=== PATIENT | female | born 1960 | race Caucasian/White ===

== ENCOUNTER → 2018-12-04 | Outpatient (CLI) | payer OTHER, SELFPAY ==
[2018-11-23 11:40] VITALS: BMI 52.7
--- NOTE | 2018-12-04 15:59 | BI_ITS ---
MAMMOGRAPHY - BILATERAL SCREENING REASON FOR EXAM: Female, 58 years old. Routine annual screening examination. PERTINENT HISTORY: Non-contributory. TECHNIQUE: Digital bilateral breast alan (3D mammographic acquisition) in the CC and MLO projections. 2-D mediolateral oblique (MLO) and craniocaudad (CC) views of both breasts were obtained. CAD: Full Field Digital Mammography with Computer Added Detection was performed. COMPARISON: Comparison is made with prior examination dated July 13, 2016 and March 08, 2012. FINDINGS: Breast Composition: The breasts are almost entirely fatty. There are no dominant masses or suspicious calcifications. No other significant abnormalities are identified. There has been no significant change since the prior study. BI/SCREEN MAMM (CAD) W/ALAN BILAT IMPRESSION: Stable bilateral screening mammogram. Yearly follow-up mammogram recommended. (A) ASSESSMENT CATEGORY: BIRADS Category 1: Negative. A letter regarding these results will be sent to the patient by the facility within 30 days. Approximately 10% of breast cancers are not detected by mammography. A normal mammogram should not delay biopsy of a clinically suspicious abnormality. [id number] Electronically Signed: Jerad Hollingsworth, at 10:12 EDT , Service support ,
== END | disposition home or self-care (01) ==
LOC: OPBI 15:58
PROVIDERS: Family Provider Family Medicine; PCP Family Medicine; Visit Provider Family Medicine
DX: Z12.31 Encounter for screening mammogram for malignant neoplasm of breast (principal)
CPT/HCPCS: 77063; 77067

== ENCOUNTER → 2018-12-28 | Outpatient (CLI) | payer OTHER, SELFPAY ==
[2018-12-05 13:45] VITALS: BMI 52.7
--- NOTE | 2018-12-28 12:45 | RAD_ITS ---
STUDY: X-RAY - RIGHT ANKLE REASON FOR EXAM: Female, 58 years old. Pain following a twisting injury. TECHNIQUE: History view(s) of the ankle. COMPARISON: None. FINDINGS: Normal visualized distal tibia and fibula. Normal medial and lateral malleoli. Normal tibiotalar articulation and ankle mortise. Plantar spur. The visualized subtalar, talonavicular, calcaneocuboid and tarsal articulations are normal. Diffuse soft tissue swelling. Calcified phleboliths seen in the subcutaneous tissues. RAD/Ankle min 3 Views IMPRESSION: Soft tissue swelling. Electronically Signed: Jerad Hollingsworth, at 13:37 EDT , Service support ,
--- NOTE | 2018-12-28 12:45 | RAD_ITS ---
STUDY: X-RAY - RIGHT FOOT CLINICAL: Female, 58 years old. Pain following a twisting injury. TECHNIQUE: 3 view(s) of the foot. COMPARISON: None. FINDINGS: There is a plantar calcaneal spur. Normal visualized subtalar, talonavicular, calcaneocuboid, tarsal and tarsometatarsal articulations. Normal metatarsi. Normal metatarsophalangeal joint of the great toe. Normal tibial and fibular sesamoid bones. Normal interphalangeal joint of the great toe. Normal phalanges of the great toe. Normal second through fifth metatarsophalangeal joints. Normal interphalangeal joints and phalanges of the lesser toes. Diffuse soft tissue swelling. RAD/Foot min 3 Views IMPRESSION: Diffuse soft tissue swelling. Electronically Signed: Jerad Hollingsworth, at 13:38 EDT , Service support ,
== END | disposition home or self-care (01) ==
LOC: HPRAD 12:45
PROVIDERS: Family Provider Family Medicine; PCP Family Medicine; Referring Provider Physician Assistant; Visit Provider Physician Assistant
DX: M25.571 Pain in right ankle and joints of right foot (principal); M79.671 Pain in right foot
CPT/HCPCS: 73610; 73630

== ENCOUNTER → 2020-07-23 14:26 | Outpatient (CLI) | payer OTHER, MEDICAID, SELFPAY ==
--- NOTE | 2020-07-23 14:27 | RAD_ITS ---
STUDY: X-RAY - ABDOMEN/PELVIS REASON FOR EXAM: Female, 60 years old. left posterior pain TECHNIQUE: Two AP supine views of the abdomen and pelvis. COMPARISON: None. FINDINGS: Normal visualized lung bases. There is a moderate amount of colonic fecal material. There is no demonstrated free abdominal air. The visualized liver, spleen and kidneys are grossly normal in size and morphology. Normal soft tissue structures. Normal visualized osseous structures. RAD/Abdomen Single View IMPRESSION: Moderate constipation Electronically Signed: Oc Villar DO at 9:20 EST Tel , Service support ,
[2020-07-23 15:26] LABS: Bacteria 0 SEEN /hpf (None Seen); Mucous, Urine 0 SEEN /hpf (<or=2+); Red Blood Cells-Urine 0 SEEN /hpf (0-5); White Blood Cells 0 SEEN /hpf (0-5)
[2020-07-23 17:40] LABS: Color, Urine Yellow (Yellow); Glucose, Dipstick Normal (Normal); Ketone-Dipstick Negative (Negative); Leukocyte Esterase-Dipstick Negative /ul (Negative); Nitrite-Dipstick Negative (Negative); Occult Blood-Urine Negative /ul (Negative); Protein-Dipstick Negative (Negative); Urine Bilirubin Dipstick Negative (Negative); Urine Clarity Clear (Clear); Urine Urobilinogen Normal (Normal)
[2020-07-23 18:10] LABS: Squamous Epithelial Cells - UA 0-5 SEEN /hpf (5-10)
== END ==
PROVIDERS: PCP Family Medicine; Referring Provider Nurse Practitioner Family; Visit Provider Nurse Practitioner Family
DX: R10.9 Unspecified abdominal pain (principal)
CPT/HCPCS: 74018; 81001; 87086; 87088

== ENCOUNTER → 2022-01-15 | Outpatient (CLI) | payer MEDICAID, SELFPAY ==
[2022-01-15 15:15] LABS: Mucous, Urine 0 SEEN /hpf (<or=2+); Red Blood Cells-Urine 0 SEEN /hpf (0-5); White Blood Cells 0 SEEN /hpf (0-5)
[2022-01-15 16:37] LABS: Color, Urine Yellow (Yellow); Glucose, Dipstick Normal (Normal); Ketone-Dipstick Negative (Negative); Leukocyte Esterase-Dipstick Negative /ul (Negative); Nitrite-Dipstick Negative (Negative); Occult Blood-Urine Negative /ul (Negative); Protein-Dipstick Negative (Negative); Urine Bilirubin Dipstick Negative (Negative); Urine Clarity Clear (Clear); Urine Urobilinogen Normal (Normal)
[2022-01-15 16:41] LABS: Absolute Lymphocyte Count 2.69 X10^3/uL (0.83-4.51); Absolute Neutrophil Count 3.9 X10^3/uL (2.0-7.7); Basophil# 0.05 X10^3/uL; Basophil% 0.7 % (0-1); Eosinophil# 0.14 X10^3/uL; Eosinophils% 1.9 % (0-5); Hemoglobin 13.8 g/dL (12.0-15.0); Lymphocyte # 2.69 X10^3/ul (0.83-4.51); Lymphocyte % 35.9 % (19-41); Mean Corp Hgb Conc 32.1 g/dL (32-36); Mean Corpuscular Hgb 28.5 pg (27.0-32.0); Mean Corpuscular Volume 88.8 fL (81-99); Monocyte# 0.66 X10^3/uL; Monocyte% 8.8 % (0-10); NRBC Flagged by Analyzer 0 % (0-5); Neutrophil # 3.92 X10^3/uL (2.7-7.7); Neutrophil % 52.3 % (47-70); Platelet Count 194 K/mm3 (150-450); RBC Distribution Width CV 12.4 % (11.6-14.6); RBC Distribution Width SD 40.7 fl (35.1-43.9); Red Blood Count 4.84 M/mm3 (4.2-5.4); White Blood Count 7.5 K/mm3 (4.4-11.0)
[2022-01-15 16:49] LABS: Bacteria 1+ /hpf (None Seen); Squamous Epithelial Cells - UA 0-5 SEEN /hpf (5-10)
[2022-01-15 17:26] LABS: ALB/GLOB Ratio 1.3 RATIO (0.9-2.4); AST(SGOT) 21 U/L (15-37); Alanine Aminotransfer ALT/SGPT 39 U/L (13-56); Albumin, Serum 4.1 g/dL (3.2-5.0); Alkaline Phosphatase 65 U/L (45-117); Anion Gap 7 (5-15); BUN 15 mg/dL (7-18); BUN/Creat Ratio 18.2 RATIO (10-20); Calcium,Total 9.4 mg/dL (8.5-10.1); Chloride 107 mmol/L (98-107); Cholesterol 165 mg/dL (200); Creatinine, Serum 0.82 mg/dL (0.55-1.02); EST Glomerular Filtration Rate 75 mL/min (>60); Est Glom Filt Rate - Afr Amer 90 mL/min (>60); Globulin 3.2 g/dL (2.2-4.2); Glucose 92 mg/dL (74-106); High Density Lipoprotein 37 mg/dL; Potassium 4.4 mmol/L (3.5-5.1); Protein, Total 7.3 g/dL (6.4-8.2); Sodium Level 140 mmol/L (136-145); Triglycerides 161 mg/dL; Very Low Density Lipoprotein 32 mg/dL (5-40)
== END | disposition home or self-care (01) ==
LOC: BIMLAB 15:14
PROVIDERS: PCP Family Medicine; Referring Provider Physician Assistant; Visit Provider Physician Assistant
DX: Z00.00 Encounter for general adult medical examination without abnormal findings (principal); R60.9 Edema, unspecified; R35.0 Frequency of micturition; Z87.442 Personal history of urinary calculi; Z13.220 Encounter for screening for lipoid disorders
CPT/HCPCS: 36415; 80053; 80061; 81001; 85025; 87086; 87088

== ENCOUNTER → 2022-01-26 | Outpatient (CLI) | payer MEDICAID, SELFPAY ==
--- NOTE | 2022-01-26 14:01 | CT_ITS ---
STUDY: CT ABDOMEN AND PELVIS WITHOUT CONTRAST REASON FOR EXAM: Female, 61 years old. R/O Kidney stone RADIATION DOSAGE (If Supplied By Facility): CTDIvol = ( 24.18 ) mGy, DLP = ( 1195.98 ) mGycm TECHNIQUE: Transaxial images were obtained from the dome of the diaphragm to the symphysis pubis without oral contrast, and without intravenous contrast. Sagittal and coronal images were reconstructed. Individualized dose optimization techniques were used for this CT. COMPARISON: None. FINDINGS: The visualized lung bases are unremarkable. The visualized portions of the heart are within normal limits. There is decreased attenuation of the liver consistent with steatosis. Normal gallbladder and extrahepatic biliary system. Normal spleen. Normal pancreas. Normal bilateral adrenal glands. Normal right kidney. Normal left kidney. There is a small hiatal hernia. Normal small intestine. There are multiple colonic diverticula consistent with diverticulosis. The appendix is visualized and appears normal. Normal abdominal aorta. Normal inferior vena cava. There is borderline retroperitoneal lymphadenopathy with enlarged nodes no greater than 10mm in the short axis diameter. Normal urinary bladder. There is absence of the uterus consistent with a prior hysterectomy. Phleboliths are seen in the pelvis. There is a small umbilical hernia containing fat. Disc space narrowing and disc degeneration at the L3-L4 level. CT/Abdomen/Pelvis without Cont IMPRESSION: Diffuse fatty infiltration of the liver. No evidence of kidney stone or ureteral stone. Electronically Signed: Jerad Hollingsworth MD at 15:15 EDT ,
== END | disposition home or self-care (01) ==
LOC: CT 13:56
PROVIDERS: PCP Family Medicine; Referring Provider Physician Assistant; Visit Provider Physician Assistant
DX: R10.9 Unspecified abdominal pain (principal); Z87.442 Personal history of urinary calculi
CPT/HCPCS: 74176

== ENCOUNTER → 2022-04-29 | Outpatient (CLI) | payer MEDICAID, SELFPAY ==
--- NOTE | 2022-04-29 08:55 | US_ITS ---
STUDY: ULTRASOUND BREAST - LEFT REASON FOR EXAM: Female, 62 years old. Palpable lump left breast. TECHNIQUE: Axial and longitudinal images of the LEFT breast were performed with a high resolution ultrasound transducer. # OF IMAGES: 14 COMPARISON: Comparison is made with prior study of 12/04/2018 and 07/13/2016. FINDINGS: LEFT Breast: The mid medial aspect of the left breast was examined by ultrasound. No sonographic abnormality is seen. US/Breast Limited Unilateral IMPRESSION: No sonographic abnormality is seen. ASSESSMENT CATEGORY: BIRADS Category 1: Negative. A letter regarding these results will be sent to the patient by the facility within 30 days. Electronically Signed: Jerad Hollingsworth MD at 11:28 EDT ,
--- NOTE | 2022-04-29 08:55 | BI_ITS ---
MAMMOGRAPHY - BILATERAL DIAGNOSTIC REASON FOR EXAM: Female, 62 years old. Two-week history of a palpable lump in the lower inner quadrant of the left breast. The lump is not felt at this time. PERTINENT HISTORY: Non-contributory. TECHNIQUE: Digital bilateral breast luis (3D mammographic acquisition) in the CC and MLO projections. 2-D mediolateral oblique (MLO) and craniocaudad (CC) views of both breasts were obtained. CAD: Full Field Digital Mammography with Computer Added Detection was performed. COMPARISON: Comparison is made with prior study dated 12/04/2018 and 07/13/2016. FINDINGS: Breast Composition: There are scattered areas of fibroglandular density. There are no dominant masses or suspicious calcifications. No other significant abnormalities are identified. There has been no significant change since the prior study. BI/DIAG MAMM W/CAD, BILAT IMPRESSION: Stable bilateral diagnostic mammogram. With the patient''s history of a palpable lump in the breast, targeted ultrasound correlation is recommended. ASSESSMENT CATEGORY: BIRADS Category 0: Incomplete. Need additional imaging evaluation. A letter regarding these results will be sent to the patient by the facility within 30 days. Approximately 10% of breast cancers are not detected by mammography. A normal mammogram should not delay biopsy of a clinically suspicious abnormality. Electronically Signed: Jerad Hollingsworth MD at 14:44 EDT ,
== END | disposition home or self-care (01) ==
LOC: OPBI 08:54
PROVIDERS: PCP Family Medicine; Visit Provider Physician Assistant
DX: N63.20 Unspecified lump in the left breast, unspecified quadrant (principal)
CPT/HCPCS: 77062; 76642; 77066; G0279

== ENCOUNTER → 2023-06-16 | Outpatient (CLI) | payer MEDICAID, SELFPAY ==
--- NOTE | 2023-06-16 12:25 | RAD_ITS ---
STUDY: X-RAY - LEFT KNEE REASON FOR EXAM: Female, 63 years old. knee pain TECHNIQUE: 4 view(s) of the knee. COMPARISON: None. FINDINGS: Normal visualized distal femur. Normal visualized proximal tibia and fibula. Normal proximal tibiofibular articulation. Narrowed medial femorotibial compartment with mild valgus deformity on standing... Normal lateral femorotibial compartment. Normal patellofemoral articulation. The soft tissue structures are unremarkable. RAD/Knee 4 or More Views IMPRESSION: Degenerative changes. No acute fracture or dislocation Electronically Signed: Tyler Gutierrez MD at 23:00 EST Reading Location ID and State: [address] [place] [address] Tel , Service support ,
[2023-06-16 15:29] LABS: ALB/GLOB Ratio 1.2 RATIO (0.9-2.4); AST(SGOT) 33 U/L (15-37); Alanine Aminotransfer ALT/SGPT 49 U/L (13-56); Albumin, Serum 4.1 g/dL (3.2-5.0); Alkaline Phosphatase 67 U/L (45-117); Anion Gap 8 (5-15); BUN 20 mg/dL (7-18); BUN/Creat Ratio 21.6 RATIO (10-20); Calcium,Total 9.3 mg/dL (8.5-10.1); Chloride 104 mmol/L (98-107); Creatinine, Serum 0.93 mg/dL (0.55-1.02); EST Glomerular Filtration Rate 65 mL/min (>60); Est Glom Filt Rate - Afr Amer 78 mL/min (>60); Globulin 3.4 g/dL (2.2-4.2); Glucose 105 mg/dL (74-106); Protein, Total 7.5 g/dL (6.4-8.2); Sodium Level 139 mmol/L (136-145)
== END | disposition home or self-care (01) ==
PROVIDERS: PCP Family Medicine; Referring Provider Family Medicine; Visit Provider Family Medicine
DX: M25.562 Pain in left knee (principal); I10 Essential (primary) hypertension
CPT/HCPCS: 36415; 73564; 80053

== ENCOUNTER → 2023-06-21 | Outpatient (CLI) | payer MEDICAID, SELFPAY ==
--- NOTE | 2023-06-21 10:13 | BI_ITS ---
MAMMOGRAPHY - BILATERAL SCREENING REASON FOR EXAM: Female, 63 years old. Routine annual screening examination. PERTINENT HISTORY: Non-contributory. TECHNIQUE: Digital bilateral breast alan (3D mammographic acquisition) in the CC and MLO projections. 2-D mediolateral oblique (MLO) and craniocaudad (CC) views of both breasts were obtained. CAD: Full Field Digital Mammography with Computer Added Detection was performed. COMPARISON: Comparison is made with prior study from December 04, 2018 and April 29, 2022. FINDINGS: Breast Composition: There are scattered areas of fibroglandular density. There are no dominant masses or suspicious calcifications. No other significant abnormalities are identified. There has been no significant change since the prior study. BI/SCRN MAMM (CAD)W/ALAN BILAT IMPRESSION: Stable bilateral screening mammogram. Yearly follow-up mammogram recommended. (A) ASSESSMENT CATEGORY: BIRADS Category 1: Negative. A letter regarding these results will be sent to the patient by the facility within 30 days. Approximately 10% of breast cancers are not detected by mammography. A normal mammogram should not delay biopsy of a clinically suspicious abnormality. [id number] Electronically Signed: Jerad Hollingsworth MD at 12:56 EST ,
== END | disposition home or self-care (01) ==
LOC: OPBI 10:13
PROVIDERS: PCP Family Medicine; Referring Provider Family Medicine; Visit Provider Family Medicine
DX: Z12.31 Encounter for screening mammogram for malignant neoplasm of breast (principal)
CPT/HCPCS: 77063; 77067

== ENCOUNTER → 2023-09-27 | Outpatient (CLI) | payer MEDICAID, SELFPAY ==
--- NOTE | 2023-09-27 10:43 | RAD_ITS ---
STUDY: X-RAY - RIGHT SHOULDER REASON FOR EXAM: Female, 63 years old. Right shoulder pain. TECHNIQUE: 4 views of the right shoulder. COMPARISON: None. FINDINGS: There is minimal glenohumeral arthrosis. Normal acromioclavicular joint. Normal acromion. Normal humeral head and visualized proximal humerus. The soft tissue structures are unremarkable. There is no demonstrated fracture. Normal visualized pulmonary apex. RAD/Shoulder min 2 Views IMPRESSION: Minimal glenohumeral arthrosis. Electronically Signed: Calin Vicente MD at 9:35 EST ,
== END | disposition home or self-care (01) ==
PROVIDERS: PCP Family Medicine; Referring Provider Nurse Practitioner; Visit Provider Nurse Practitioner
DX: M25.519 Pain in unspecified shoulder (principal)
CPT/HCPCS: 73030

== ENCOUNTER 2023-10-07 08:07 | Outpatient (RCR) | payer MEDICAID, SELFPAY ==
--- NOTE | 2023-10-07 08:53 | HP.PTEVAL ---
Patient's Visit Information Visit Information Visit Information: ALCIDES STEELE is a 63 year old F referred to Physical Therapy by RANDY Elizalde with a diagnosis of BPPV. Date of Evaluation: 10/07/23 Physical Therapist: Jesu Paniagua, MARIAELENAT, OCS, CSCS Visit Plan Frequency: 1x/Week Duration: 2-4 Weeks Plan: weekly x 2-4 to monitor need for further positional intervention(+ L HD today) Educate on treatment Subjective Subjective: I have vertigo. Woke up one morning with the room spinning. That was about a month ago. Sat up and spun and lasted 15 seconds. Head always feels full of cotton Improving overall but less intense. Gets spinning now when she lies down for a few seconds. Also if she tips her head back. Has seen doctor a few times, does have fluid on it according to doctor. has been given flonase and meclizine. Not taken lately but did at first. Activities are normal just careful. Sleep is OK. Retired. Hobbies: crafting and can still do. Objective Objective: Walks I into PT safely and transfers bed and chair I. Good balance and function. cervical AROM WFL adn without pain. UE AROM WFL, limited L due to pain shoulder. - R hallpike jerry + L hallpike jerry for 8 second up torsional nystagmus, treated with modified madeline adn then negative HD test. Balance/Special Test Scores Functional Gait Assessment Score: 27 % Disability: 10.0000 Dizziness Score: 14 Goals Goal 1:: abolish dizzyness with looking up, lying down and sitting up Goal Time Frame: 2-4 Weeks Goal 2:: Pt feel 100% back to normal Goal Time Frame: 2-4 Weeks Goal 3:: DHI score 3 or less Goal Time Frame: 2-4 Weeks Rehabilitation Potential Physical Therapy Diagnosis: Dizzyness preventing comfortable funciton. Rehabilitation Potential: Excellent Anticipated Interventions Patient/Client Instruction: Educate patient on: Condition and Risk Factors For the Purpose of:: To increase tolerance to activity/condition/position Comment: vestibular maneuvers, exercises as needed. For the Purpose of:: To increase tolerance to activity/condition/position Text: Thank you for the opportunity to evaluate your patient. For Medicare and Medicare HMO plans, please review the plan of care and approve it. It will need to be FAXED BACK to us at [phone] for Medicare purposes. For Medicare only, by signing this I certify the plan of care. Please let me know if there are questions or concerns regarding this plan of care. Physician Signature: Date:
--- NOTE | 2023-12-29 12:05 | HP.PT.NRP ---
Patient Information Patient Information: ALCIDES STEELE was seen in my office for initial evaluation on 10/07/23. The following Plan of Care was established for this patient: POC Established Initial Frequency: 1x/Week Initial Duration: 2-4 Weeks Anticipated Interventions Patient/Client Instruction: Educate patient on: Condition and Risk Factors For the Purpose of:: To increase tolerance to activity/condition/position For the Purpose of:: To increase tolerance to activity/condition/position Last Seen Last Seen: This patient was last seen in our office 10/07/23. Pertinent comments regarding their Physical therapy will appear below: Pt seen one visit of POC and then did not attend any further visits. At this point, it has been over two months and I will discontinue due to nonattendance. At this point I will be discontinuing this patient from physical therapy. I would be happy to see this patient again in the future if found appropriate by the physician. Thank you! Jesu Paniagua, DPT, OCS, CSCS Balance/Gait/Functional tests Balance/Special Test Scores Functional Gait Assessment Score: 27 % Disability: 10.0000 Dizziness Score: 14
== END 2023-10-07 19:00 | disposition home or self-care (01) ==
LOC: PT 08:07
PROVIDERS: PCP Family Medicine; Referring Provider Nurse Practitioner; Visit Provider Nurse Practitioner
DX: H81.10 Benign paroxysmal vertigo, unspecified ear (principal)
CPT/HCPCS: 97161

== ENCOUNTER → 2024-03-13 | Outpatient (CLI) | payer MEDICAID, SELFPAY ==
[2024-03-13 17:43] LABS: ALB/GLOB Ratio 1.1 RATIO (0.9-2.4); AST(SGOT) 33 U/L (15-37); Alanine Aminotransfer ALT/SGPT 45 U/L (13-56); Albumin, Serum 4.1 g/dL (3.2-5.0); Alkaline Phosphatase 70 U/L (45-117); Anion Gap 10 (5-15); BUN 14 mg/dL (7-18); BUN/Creat Ratio 14.8 RATIO (10-20); Calcium,Total 10.1 mg/dL (8.5-10.1); Chloride 99 mmol/L (98-107); Creatinine, Serum 0.95 mg/dL (0.55-1.02); EST Glomerular Filtration Rate 63 mL/min (>60); Est Glom Filt Rate - Afr Amer 76 mL/min (>60); Globulin 3.7 g/dL (2.2-4.2); Glucose 87 mg/dL (74-106); Potassium 3.4 mmol/L (3.5-5.1); Protein, Total 7.8 g/dL (6.4-8.2); Sodium Level 136 mmol/L (136-145)
== END | disposition home or self-care (01) ==
LOC: MTLAB 15:09
PROVIDERS: PCP Family Medicine; Referring Provider Family Medicine; Visit Provider Family Medicine
DX: I10 Essential (primary) hypertension (principal)
CPT/HCPCS: 36415; 80053

== ENCOUNTER 2024-03-17 10:41 | Emergency (ER) | payer MEDICAID, SELFPAY ==
[2024-03-17 10:41] VITALS: BP 150/82; PULSE 81; RESP 19; TEMP 35.7; O2SAT 96; BMI 52.9
--- NOTE | 2024-03-17 11:03 | EDS_ITS ---
HPI History of Present Illness Chief Complaint: Abscess Informant: patient Onset/Context/Timing Onset: Days Context: Gradual Onset Timing: Continuous Current Severity: Mild Maximum Severity: Mild Narrative Narrative: 63-year-old female left buttock abscess last several days. No prior history. Denies being diabetic. No other complaints. Was seen in urgent care and sent to the ER. Prior similar symptoms: No Recent Illness/Hospitalization: No PFSH PFSH Medical History Hemorrhoids Stomach ulcer Kidney stones Hives Chronic headaches Arthritis Home Medications ?Medication ?Instructions ?Recorded ?Last Taken ?Type blood pressure kit-extra large #1 ea 04/19/22 Unknown Rx hydrochlorothiazide 12.5 mg tablet 12.5 mg PO DAILY #90 tabs 06/16/23 Unknown Rx meclizine 25 mg tablet 25 mg PO BID PRN dizziness #60 tabs 09/27/23 Unknown Rx lisinopril 20 mg tablet 20 mg PO DAILY #90 tabs 03/13/24 Unknown Rx cephalexin 500 mg capsule 500 mg PO Q6 #40 CAPSULES 03/17/24 Unknown Rx sulfamethoxazole 800 1 tab PO BID 10 days #20 tabs 03/17/24 Unknown Rx mg-trimethoprim 160 mg tablet (Bactrim DS) Allergy/AdvReac Type Severity Reaction Status Date / Time aspirin Allergy Severe Stomach Verified 03/17/24 10:42 pain Family History Mother CVA (cerebral vascular accident) Heart disease Father Heart disease Surgical History History of hysterectomy History of left knee surgery Social History Smoking Status: Former smoker alcohol intake: never substance use type: does not use frequency: 3-4 times per week ROS ROS ED ROS Narrative Left flank discomfort. Constitutional Constitutional ED: Denies chills or fever(s) Eyes Eyes: Denies blurry vision ENT ENT ED: Denies ear pain Cardiovascular Cardiovascular: Denies chest pain Respiratory/Chest Respiratory/Chest: Denies dyspnea Gastrointestinal Gastrointestinal: Denies abdominal pain Genitourinary Genitourinary ED: Denies dysuria or hematuria Musculoskeletal Musculoskeletal: Denies arthralgias Integumentary Denies abscess Neurologic Neurologic: Denies headache(s) Psychiatric Psychiatric: Denies anxiety Endocrine Endocrinology: Denies cold intolerance Hematologic/Lymphatic Hematologic/Lymphatic: Reports none Allergic/Immunologic Allergic/Immunologic ED: Denies mouth swelling or tongue swelling EXAM Physical Exam Narrative Exam Narrative: Well-appearing 63-year-old female. Vital signs stable afebrile. H EENT exam unremarkable. Lungs clear. Heart regular rhythm rate about 80 no murmur. Chest wall nontender. Abdomen soft nontender. Moving all 4 extremities. Nontender no edema. Left buttock medial cheek lower aspect is indurated tissue palpable abscess. No significant cellulitis. Tender to palpation. Does not involve the rectum. Patient is awake and alert. Answering questions and following commands. Const Vital Signs: 03/17/24 10:41 03/17/24 13:21 03/17/24 15:00 Temperature 96.2 F L Temperature Source Temporal Pulse Rate 81 74 87 Respiratory Rate 19 H 16 16 Blood Pressure 150/82 H 127/46 H 132/78 H Blood Pressure Mean 104 73 96 Pulse Ox 96 98 98 Oxygen Delivery Method Room Air Room Air Positive well nourished and well developed; Negative for cachectic, contractures or unkempt General Appearance ED: well developed and NAD; Negative for unkempt, cachectic, contractures, cyanotic, diaphoretic or pallor Nutritional Appearance: Negative for cachectic HEENT Reports moist mucous membranes Negative for trauma or tenderness Eyes PERRL and EOMs intact bilaterally General Eye ED: Negative for pale conjunctiva, scleral icterus or other Neck no lymphadenopathy, supple and no JVD General: Negative for tenderness or other Chest Wall inspection of chest normal and palpation of chest normal Chest: Negative for other Resp normal respiratory effort and clear to auscultation bilaterally Effort and Inspection: Negative for retractions Auscultation: Negative for rales, rhonchi, wheezes or diminished lung sounds Cardio regular rate, regular rhythm, S1 normal heart sound, S2 normal heart sound and no murmurs Palpation: Negative for palpable S3 or palpable S4 Rate: Negative for bradycardia or tachycardic Rhythm: Negative for abnormal rhythm GI normal to inspection, nondistended, normoactive bowel sounds, non-tender, non- distended and no masses Inspection: Negative for abdominal distention Auscultation: normoactive bowel sounds Palpation: soft; Negative for tender or guarding Back/Spine no CVA tenderness General Back: Negative for CVA tenderness Cervical Spine: Negative for cervical spine tenderness Thoracic Spine / Upper Back: Negative for thoracic spinal tenderness or paraspinal muscle tenderness Lumbar Spine / Lower Back: Negative for lumbar spinal tenderness Extremity normal to inspection General Extremety ED: Negative for edema, tenderness or other findings General Extremity: Negative for edema or other findings Neuro oriented x3 and CN's II-XII intact bilaterally Sensorium / Orientation: alert; Negative for orientation impaired Motor Exam: strength 5/5 throughout Psych mental status grossly normal Appearance: Negative for unkempt Attitude: No agitated Mood & Affect: Negative for depressed, anxious or tearful Skin no rashes or lesions noted and no wounds Skin Narrative: Medial left buttock indurated tissue tender. Early abscess. General Skin Exam: Negative for jaundice or pallor Lesions: No lesion noted Rashes: No rashes noted Trauma: Negative for abrasion Wounds: Negative for wounds noted MDM MDM MDM Narrative Medical decision making narrative: 63-year-old female left buttock subcu abscess. Area will be locally anesthetized with lidocaine and will make an incision to try to drain possible abscess. Left inferior medial buttock away from the anus there is indurated tissue. It is tender. I cleaned it with iodine. Local anesthesia with lidocaine. Patient tolerated well. I probed with a 1-1/2 inch needle and was not unable to get any pus. I made a 1 inch incision probed the area with a hemostat and again no pus. Patient tolerated well. We are obtaining a CT to rule out a deeper abscess. CT of the soft tissue of the buttocks was obtained. There is no obvious abscess that needs to be drained at this time. There is indurated tissue. I did go over this with the general surgeon on-call who also reviewed the CT. I discussed this all with the patient. She will be started on Keflex and Bactrim. Keflex 4 times a day. Bactrim twice a day. For 10 days. Follow-up with general surgery call their office on Tuesday to be seen earlier this week for further evaluation. Warm soaks. Motrin and Tylenol for pain. Return if she is feeling worse. History & Record Review Discussion w/independent historian: Patient Additional record(s) reviewed:: Prior inpatient record, Prior outpatient record, Prior ED visit and Prior labs Radiography Diagnostic Testing: Clinical Impression(s) from Imaging Studies Pelvis CT 03/17/24 14:17 IMPRESSION: Incomplete evaluation of the buttocks. No abnormality noted within the visualized portions of the pelvis. Electronically Signed: Lance Hines MD at 15:16 EDT , Procedures Other Procedures Procedure(s): Left buttocks indurated tissue. Cleaned with iodine. Local anesthetized with lidocaine. Incision and drainage 1 inch incision. Blunt probe the area with a curved hemostat no pus. No pus pocket found. Discharge Plan Triage Chief Complaint: Abscess ED Provider: Jamari Pike Dx/Rx/DC Orders Clinical Impression: Cellulitis of buttock, History of hypertension Instructions: ED Cellulitis Prescriptions: New cephalexin 500 mg capsule 500 mg PO Q6 Qty: 40 0RF sulfamethoxazole-trimethoprim [Bactrim DS] 800-160 mg tablet 1 tab PO BID 10 Days Qty: 20 0RF No Action (DME) blood pressure kit-extra large Kit See Rx Instructions .Route Qty: 1 0RF Rx Instructions: Check daily and as needed hydrochlorothiazide 12.5 mg tablet 12.5 mg PO DAILY Qty: 90 3RF meclizine 25 mg tablet 25 mg PO BID PRN (Reason: dizziness) Qty: 60 0RF lisinopril 20 mg tablet 20 mg PO DAILY Qty: 90 2RF Primary Care Provider: Arsh Llanos Referrals: Arsh Llanos, DO [Primary Care Provider] - Alexandr Cardoza MD [Med Staff - Active Staff] - As soon as possible Activity Restrictions/Additional Instructions: Warm compresses or soaks to your buttocks. Twice a day. Motrin Tylenol for pain. You have an infection of the soft tissue. Currently there is no abscess. It could develop an abscess. Take the antibiotic Keflex 4 times a day. Take the antibiotic Bactrim twice a day. Call and follow-up with Dr. Toni Cardoza on Tuesday. Their office will get you in to be seen this week. If this improves you may not need anything else done. If it gets worse you may need it drained. If you are feeling a lot worse return to the emergency department. Print Language: Vietnamese Disposition Disposition: Home, Self Care
[2024-03-17] MEDS: Lidocaine 1% (20 ml mdv) 20 ML Vial 10 ML INFILT (11:07)
[2024-03-17 13:21] VITALS: BP 127/46; PULSE 74; RESP 16; O2SAT 98
--- NOTE | 2024-03-17 14:17 | CT_ITS ---
EXAM: CT PELVIS WITHOUT INTRAVENOUS CONTRAST CLINICAL INDICATION: left buttock abscess TECHNIQUE: Helically acquired images were obtained of the pelvis without intravenous contrast. This CT exam was performed using one or more of the following dose reduction techniques: automated exposure control, adjustment of the mA and/or kV according to patient size, and/or use of iterative reconstruction technique. COMPARISON: No relevant prior studies available. FINDINGS: BOWEL: Unremarkable as visualized. No bowel distention. No focal inflammatory change. APPENDIX: No evidence of acute appendicitis. INTRAPERITONEAL SPACE: Normal. No ascites or other fluid collection. No free air. BLADDER: Normal. REPRODUCTIVE: Hysterectomy noted. BONES/JOINTS: No suspicious lytic or blastic abnormality. SOFT TISSUES: The visualized subcutaneous tissues of the buttocks appear normal. The buttocks however are not imaged in their entirety. No pelvic wall hernia. LYMPH NODES: Normal. No enlarged lymph nodes. CT/Pelvis without IV Contrast IMPRESSION: Incomplete evaluation of the buttocks. No abnormality noted within the visualized portions of the pelvis. Electronically Signed: Lance Hines MD at 15:16 EDT ,
[2024-03-17 15:00] VITALS: BP 132/78; PULSE 87; RESP 16; O2SAT 98
[2024-03-17] MEDS: Smz/Tmp Ds Tablet 1 TABLET PO (16:14)
[2024-03-17] MEDS: Cephalexin 250 MG Capsule 500 MG PO (16:14)
[2024-03-17 16:22] VITALS: BP 166/72; PULSE 82; RESP 19; TEMP 36.2; O2SAT 100
== END 2024-03-17 16:23 | disposition home or self-care (01) ==
PROVIDERS: Emergency Provider Emergency Medicine; PCP Family Medicine; Visit Provider Emergency Medicine
DX: L03.317 Cellulitis of buttock (principal); Z87.891 Personal history of nicotine dependence; I10 Essential (primary) hypertension; Z90.710 Acquired absence of both cervix and uterus
CPT/HCPCS: 10060; 72192; 99283; A4216

== ENCOUNTER → 2024-03-21 | Outpatient (CLI) | payer MEDICAID, SELFPAY | END | disposition home or self-care (01) | LOC: LABSPEC 14:58 | PROVIDERS: PCP Family Medicine; Referring Provider Physician Assistant; Visit Provider Physician Assistant | DX: L02.31 Cutaneous abscess of buttock (principal) | CPT/HCPCS: 87070; 87075; 87077; 87186; 87205 ==

== ENCOUNTER → 2025-01-01 | Outpatient (CLI) | payer MEDICARE, BC, SELFPAY ==
--- NOTE | 2025-01-01 15:15 | BI_ITS ---
EXAM: SCRN MAMM (CAD)W/ALAN BILAT DATE: 01/01/2025 CLINICAL HISTORY: F, Age 64 y/o , SCREEN BREAST CANCER RISK ASSESSMENT: Na TECHNIQUE: Bilateral screening digital breast tomosynthesis with 2D and 3D images. Computer aided detection. COMPARISON: Prior exam(s) were compared FINDINGS: TISSUE DENSITY: The breast tissue is composed of scattered area of fibroglandular density.. Bilateral Breast Mammographic Findings: No suspicious masses, calcifications or other abnormalities are identified. BI/SCRN MAMM (CAD)W/ALAN BILAT IMPRESSION: OVERALL FINAL ASSESSMENT: BIRADS 1 NEGATIVE RECOMMENDATION: Routine annual follow-up in 1 Year A letter with findings and recommendations will be mailed to the patient. Reading Location: [id number]
== END | disposition home or self-care (01) ==
PROVIDERS: PCP Family Medicine; Referring Provider Family Medicine; Visit Provider Family Medicine
DX: Z12.31 Encounter for screening mammogram for malignant neoplasm of breast (principal)
CPT/HCPCS: 77063; 77067

== ENCOUNTER 2025-02-15 06:50 | Day surgery (SDC) | payer MEDICARE, BC, SELFPAY ==
[2025-02-15] VITALS (7 sets, daily range): BP systolic 119–158; BP diastolic 63–79; PULSE 60–68; RESP 16–18; TEMP 36–36.6; O2SAT 95–98; BMI 54.1
--- OUTSIDE RECORDS SUMMARY | 2025-02-15 06:56 | XMS RPT_ITS | CCD ---
Author Organization [facility] Care Team Providers Care Engineering Technology Instructor Name Role Phone Dr. Arsh Llanos Primary Care Provider [phone] Dr. Arsh Llanos Referring Provider [phone] LEODAN Branch Attending Provider Unavailab Dr. Arsh Coles Primary Care Provider [phone] Dr. Arsh Llanos Attending Provider [phone] Dr. Arsh Llanos Referring Provider [phone] RANDY Houston Attending Provider [phone] Dr. Arsh Llanos DO Primary Care Provider Dr. Arsh Llanos DO Attending Provider [phone] Dr. Arsh Llanos DO Referring Provider [phone] Brown, Arsh R Referring Unavailable Shira Lim Attending Unavailable Brown, Arsh R Primary Care Unavailable Brown, Arsh R Primary Care Unavailable Hudson Vigil Attending Unavailable Brown, Arsh R Referring Unavailable Brown, Arsh R Referring Unavailable Brown, Arsh R Primary Care Unavailable Alexandr Cardoza Attending Unavailable Shira Lim Attending Unavailable Shira Lim Referring Unavailable Brown, Arsh R Primary Care Unavailable Brown, Arsh R Primary Care Unavailable Brown, Arsh R Attending Unavailable Brown, Arsh R Referring Unavailable Brown, Arsh R Attending Unavailable Brown, Arsh R Referring Unavailable Brown, Arsh R Primary Care Unavailable Brown, Arsh R Primary Care Unavailable Jamari Pike Attending Unavailable Brown, Arsh R Primary Care Unavailable Radha Houston Attending Unavailable Brown, Arsh R Referring Unavailable Shira Lim Attending Unavailable Brown, Arsh R Referring Unavailable Brown, Arsh R Primary Care Unavailable Brown, Arsh R Attending Unavailable Brown, Arsh R Referring Unavailable Brown, Arsh R Primary Care Unavailable Sanchez PA, Shira Attending Unavailable Brown, Arsh R Referring Unavailable Brown, Arsh R Primary Care Unavailable Shira Lim Attending Unavailable Brown, Arsh R Referring Unavailable Brown, Arsh R Primary Care Unavailable Brown, Arsh R Primary Care Unavailable Brown, Arsh R Attending Unavailable Brown, Arsh R Referring Unavailable Allergies Allergy Classification Reported Allergen(s) Allergy Type Date of Onset Reaction(s) Facility (7 sources) Aspirin Drug Allergy 2 Stomach pain [facility] (2 sources) Cephalexin Drug Allergy 5 [facility] (2 sources) Sulfamethoxazole Drug Allergy 5 [facility] (2 sources) Trimethoprim Drug Allergy 5 [facility] (1 source) Aspirin Drug Allergy 5 [facility] (1 source) Cephalexin Drug Allergy 5 [facility] (1 source) Sulfamethoxazole Drug Allergy 5 [facility] (1 source) Trimethoprim Drug Allergy 5 [facility] Medications Current Medications Medication Drug Class(es) Dates Sig (Normalized) Sig (Original) Blood Pressure Kit-Extra Large (4 sources) Start: 04-19-2022 Blood Pressure Kit-Extra Large Active 0 .Route April 18, 2022 11:00pm Check daily and as needed Start: 04-19-2022 Blood Pressure Kit-Extra Large Active 0 .Route 1 April 19, 2022 12:00am Check daily and as needed Blood Pressure Kit-Extra Large kit (2 sources) Start: 04-19-2022 Blood Pressure Kit-Extra Large kit Active 0 .Route 1 April 19, 2022 12:00am Check daily and as needed clotrimazole 10 mg/ml topical cream (2 sources) Azole Antifungal Start: 12-25-2024 Clotrimazole 1 % cream Active 1 [facility] TOPICAL TWICE A DAY December 25, 2024 12:00am triamcinolone acetonide 1 mg/ml topical cream (7 sources) Corticosteroid Start: 12-25-2024 Triamcinolone Acetonide 0.1 % cream Active 1 NMA TOPICAL daily December 25, 2024 12:00am Use on hands Start: 06-16-2023 End: 03-17-2024 Triamcinolone Acetonide 0.1 % ointment Discontinued 1 NMA TOPICAL DAILY June 16, 2023 1:00am March 17, 2024 10:08am Completed/Discontinued Medications Medication Drug Class(es) Dates Sig (Normalized) Sig (Original) acetaminophen 325 mg / HYDROcodone bitartrate 5 mg oral tablet (7 sources) Opioid Agonist Start: 07-23-2020 End: 01-15-2022 Hydrocodone-Acetam inophen ([place]) 5-325 mg tablet Discontinued 1 {tbl} PO Q8H as needed for pain July 23, 2020 January 15, 2022 2:30pm amoxicillin 875 mg / clavulanate 125 mg oral tablet (7 sources) Penicillin-class Antibacterial Start: 06-25-2019 End: 07-23-2020 Amoxicillin-Pot Clavulanate (Augmentin) 875-125 mg tablet Discontinued 1 {tbl} PO Q12H June 25, 2019 1:00am July 23, 2020 2:39pm cephalexin 500 mg oral capsule (2 sources) Cephalosporin Antibacterial Start: 03-17-2024 End: 03-28-2024 take 1 capsule by mouth every six hours Cephalexin 500 mg capsule Discontinued 500 mg PO EVERY 6 HOURS 40 March 17, 2024 12:00am March 28, 2024 2:03pm codeine phosphate 2 mg/ml / guaiFENesin 20 mg/ml oral solution (7 sources) Opioid Agonist Start: 06-25-2019 End: 07-23-2020 take 1 mL by mouth every six hours as needed for cough Codeine-Guaifenesi n 10-100 mg/5 mL liquid Discontinued 5 mL PO EVERY 6 HOURS as needed for cough 120 June 25, 2019 1:00am July 23, 2020 2:39pm Start: 06-25-2019 End: 07-23-2020 take 1 mL by mouth every six hours Codeine-Guaifenesin Discontinued 5 ML PO EVERY 6 HOURS June 25, 2019 12:00am July 23, 2020 1:39pm doxycycline monohydrate 100 mg oral capsule (7 sources) Tetracycline-class Drug Start: 11-15-2018 End: 12-05-2018 take 1 capsule by mouth twice daily Doxycycline Monohydrate 100 mg capsule Discontinued 100 mg PO TWICE A DAY November 15, 2018 12:00am December 05, 2018 1:44pm fluticasone propionate 0.05 mg/actuat metered dose nasal spray (3 sources) Corticosteroid Start: 09-27-2023 End: 03-17-2024 Fluticasone Propionate 50 mcg/actuation spray,suspension Discontinued 2 NMA INTRANASAL TWICE A DAY September 27, 2023 1:00am March 17, 2024 10:08am administer into each nostril Start: 09-27-2023 take 1 spray(s) nasa l route twice daily Fluticasone Propionate Active 2 SPRAY INTRANASAL TWICE A DAY September 27, 2023 12:00am administer into each nostril furosemide 20 mg oral tablet (20 sources) Loop Diuretic Start: 11-23-2018 End: 06-09-2022 take 1 tablet by mouth once daily as needed Furosemide 20 mg tablet Discontinued 20 mg PO DAILY as needed for fluid retension January 15, 2022 3:04pm June 09, 2022 12:43pm hydroCHLOROthiazide 12.5 mg oral tablet (17 sources) Thiazide Diuretic Start: 06-09-2022 End: 12-25-2024 take 1 tablet by mouth once daily Hydrochlorothiazide 12.5 mg tablet Discontinued 12.5 mg PO DAILY January 24, 2023 4:35pm June 16, 2023 12:53pm lisinopril 20 mg oral tablet (6 sources) Angiotensin Converting Enzyme Inhibitor Start: 03-13-2024 End: 12-25-2024 take 1 tablet by mouth once daily Lisinopril 20 mg tablet Discontinued 20 mg PO DAILY December 18, 2024 8:20am December 25, 2024 11:46am meclizine hydrochloride 25 mg oral tablet (3 sources) Antiemetic Start: 09-27-2023 End: 12-25-2024 take 1 tablet by mouth twice daily as needed for dizziness Meclizine 25 mg tablet Discontinued 25 mg PO TWICE A DAY as needed for dizziness September 27, 2023 1:00am December 25, 2024 11:35am miconazole nitrate 0.02 mg/mg topical powder (7 sources) Azole Antifungal Start: 11-03-2018 End: 11-15-2018 Miconazole Nitrate (Zeasorb (Miconazole)) 2 % powder Discontinued 1 NMA TOPICAL TWICE A DAY 71 November 03, 2018 12:00am November 15, 2018 12:34pm omeprazole 20 mg delayed release oral capsule (7 sources) Proton Pump Inhibitor Start: 01-15-2022 End: 03-17-2024 take 1 capsule by mouth once daily Omeprazole 20 mg capsule,delayed release(DR/EC) Discontinued 20 mg PO DAILY 30 January 15, 2022 12:00am March 17, 2024 10:08am oxiconazole 10 mg/ml topical cream (7 sources) Azole Antifungal Start: 11-03-2018 End: 11-15-2018 Oxiconazole 1 % cream Discontinued 1 NMA TOPICAL DAILY 90 November 03, 2018 12:00am November 15, 2018 12:34pm potassium chloride 20 meq extended release oral tablet (2 sources) Start: 03-20-2024 End: 12-25-2024 take 1 tablet by mouth once Potassium Chloride 20 mEq tablet extended release Discontinued 20 meq PO ONCE 1 March 20, 2024 12:00am December 25, 2024 11:36am sucralfate 1000 mg oral tablet (3 sources) Aluminum Complex Start: 09-06-2023 End: 03-17-2024 take 1 tablet by mouth at bedtime Sucralfate (Carafate) 1 gram tablet Discontinued 1 g PO before meals and at bedtime 40 September 06, 2023 1:00am March 17, 2024 10:08am sulfamethoxazole 800 mg / trimethoprim 160 mg oral tablet (2 sources) Dihydrofolate Reductase Inhibitor Antibacterial, Sulfonamide Antimicrobial Start: 03-17-2024 End: 03-28-2024 Sulfamethoxazole-Trime thoprim (Bactrim Ds) 800-160 mg tablet Discontinued 1 {tbl} PO TWICE A DAY 20 05March 17, 2024 12:00am March 28, 2024 2:03pm tamsulosin hydrochloride 0.4 mg oral capsule (14 sources) alpha-Adrenergic Lavonne Start: 07-23-2020 End: 02-15-2022 take 1 capsule by mouth once daily Tamsulosin 0.4 mg capsule Discontinued 0.4 mg PO DAILY 60 January 15, 2022 2:57pm February 15, 2022 3:01pm Problems Active Problems Problem Classification Problem Date Documented Da te Episodic/Chronic Abdominal hernia (2 sources) Umbilical hernia without obstruction or gangrene; Translations: [Umbilical hernia without mention of obstruction or gangrene] Episodic Allergic reactions (18 sources) Urticaria; Translations: [Urticaria, unspecified] Onset: 01-08-2025 11-03-2018 Episodic Anal and rectal conditions (2 sources) Perianal abscess; Translations: [Anal abscess] 03-17-2024 Episodic Calculus of urinary tract (9 sources) Kidney stone; Translations: [Calculus of kidney] Episodic Conditions associated with dizziness or vertigo (5 sources) Benign paroxysmal positional vertigo; Translations: [Benign paroxysmal vertigo, unspecified ear] 09-27-2023 Episodic Essential hypertension (11 sources) Hypertensive disorder; Translations: [Essential (primary) hypertension] Onset: 01-08-2025 06-16-2023 Chronic Fluid and electrolyte disorders (5 sources) Hypokalemia; Translations: [Hypokalemia] Onset: 01-08-2025 03-20-2024 Episodic Gastritis and duodenitis (4 sources) Gastritis; Translations: [Gastritis, unspecified, without bleeding] 09-06-2023 Episodic Headache; including migraine (7 sources) Chronic headache disorder; Translations: [Chronic headache] 11-03-2018 Episodic Nonmalignant breast conditions (1 source) Unspecified lump in the left breast, unspecified quadrant; Translations: [Lump or mass in breast] Episodic Osteoarthritis (7 sources) Arthritis; Translations: [Unspecified osteoarthritis, unspecified site] 11-03-2018 Chronic Other circulatory disease (1 source) Elevated blood-pressure reading, without diagnosis of hypertension; Translations: [Elevated blood pressure reading without diagnosis of hypertension] Episodic Other circulatory disease (2 sources) H/O: hypertension; Translations: [Personal history of other diseases of the circulatory system] 03-25-2024 Episodic Other gastrointestinal disorders (1 source) Intestinal malabsorption, unspecified; Translations: [Intestinal malabsorption, unspecified] Onset: 03-21-2024 Chronic Other gastrointestinal disorders (2 sources) Diarrhea; Translations: [Diarrhea, unspecified] 03-20-2024 Episodic Other nervous system disorders (1 source) Other chronic pain; Translations: [Other chronic pain] Onset: 01-08-2025 Chronic Other non-traumatic joint disorders (12 sources) Pain in left knee; Translations: [Left knee pain] Onset: 01-08-2025 06-16-2023 Episodic Other non-traumatic joint disorders (3 sources) Shoulder pain; Translations: [Pain in unspecified shoulder] 09-27-2023 Episodic Other non-traumatic joint disorders (1 source) Pain in unspecified shoulder; Translations: [Pain in joint, shoulder region] 09-27-2023 Episodic Other nutritional; endocrine; and metabolic disorders (5 sources) Body mass index 30+ - obesity; Translations: [Obesity, unspecified] 06-09-2022 Chronic Other nutritional; endocrine; and metabolic disorders (3 sources) Obesity, unspecified; Translations: [Obesity, unspecified] 06-16-2023 Chronic Other screening for suspected conditions (not mental disorders or infectious disease) (6 sources) Patient encounter status; Translations: [Encounter for screening for malignant neoplasm of colon] Onset: 01-04-2025 12-25-2024 Episodic Other skin disorders (4 sources) Broken skin; Translations: [Other skin changes] 04-16-2024 Episodic Other skin disorders (1 source) Other skin changes; Translations: [Other skin changes] Onset: 01-08-2025 Episodic Spondylosis; intervertebral disc disorders; other back problems (4 sources) Neck pain; Translations: [Cervicalgia] 09-27-2023 Episodic Sprains and strains (14 sources) Sprain of ankle; Translations: [Sprain of unspecified ligament of right ankle, initial encounter] 12-28-2018 Episodic Superficial injury; contusion (5 sources) Injury of abdominal wall; Translations: [Contusion of abdominal wall, initial encounter] 06-09-2022 Episodic Unclassified (4 sources) Encounter for screening colonoscopy; Translations: [Z12.11 - Encounter for screening for malignant neoplasm of colon] Past or Other Problems Problem Classification Problem Date Documented Da te Episodic/Chronic Other gastrointestinal disorders (1 source) Diarrhea, unspecified; Translations: [Diarrhea, unspecified] Onset: 03-21-2024 Episodic Skin and subcutaneous tissue infections (13 sources) Cellulitis of lower limb; Translations: [Cellulitis of right lower limb] Onset: 03-23-2024 11-23-2018 Episodic Results Test Name Value Interpretation Reference Range Facility Breast imaging reportOrdered By: Calli Goldman on 01-01-2025 Study report [facility] Imaging Services [address] [place] [address] SCRN MAMM (CAD)W/ALAN BILAT MR#: [id number] Acct: [id number] Name: ALCIDES STEELE Rep #: [id number] : 1960 F 64 From: Eric Fernandes MD PCP: Dr. Arsh Llanos, Status: RE G CLI Study:SCRN MAMM (CAD)W/ALAN BILAT Date of Exa m: 01/01/25 Exam# [id number] Ordering Dr: Do sonam Llanos DO EXAM: SCRN MAMM (CAD)W/ALAN BILAT DATE: 01/01/2025 CLINICAL HISTORY: F, Age 64 y/o , SCREEN BREAST CANCER RISK ASSESSMENT: Na TECHNIQUE: Bilateral screening digital breast tomosynthesis with 2D and 3D images. Computeraided detection. COMPARISON: Prior exam(s) were compared FINDINGS: TISSUE DENSITY: The breast tissue is composed of scattered area of fibroglandular density.. Bilateral Breast Mammographic Findings: No suspicious masses, calcifications or other abnormalities are identified. BI/SCRN MAMM (CAD)W/ALAN BILAT IMPRESSION: OVERALL FINAL ASSESSMENT: BIRADS 1 NEGATIVE RECOMMENDATION: Routine annual follow-up in 1 Year A letter with findings and recommendations will be mailed to the patient. Reading Location: [id number] CC: Dr. Arsh Llanos DO ~ Developer Support Engineer: Signed [facility] SCRN MAMM (CAD)W/ALAN BILATo n 01-01-2025 SCRN MAMM (CAD)W/ALAN BILAT [facility] Imaging Services [address] [place] [address] SCRN MAMM (CAD)W/ALAN BILAT MR#: [id number] Acct: [id number] Name: ALCIDES STEELE Rep #: [id number] : 1960 F 64 From: Calli Nguyễn i, MD PCP: Dr. Arsh Llanos, Status: REG CLI Study: SCRN MAMM (CAD)W/ALAN BILAT Date of Exam: 10/23 Exam# [id number] Ordering Dr: Arsh Llanos DO EXAM: SCRN MAMM (CAD)W/ALAN BILAT DATE: 01/01/2025 CLINICAL HISTORY: F, Age 64 y/o , SCREEN BREAST CANCER RISK ASSESSMENT: Na TECHNIQUE: Bilateral screening digital breast tomosynthesis with 2D and 3D images. Computer aided detection. COMPARISON: Prior exam(s) were compared FINDINGS: TISSUE DENSITY: The breast tissue is composed of scattered area of fibroglandular density.. Bilateral Breast Mammographic Findings: No suspicious masses, calcifications or other abnormalities are identified. BI/SCRN MAMM (CAD)W/ALAN BILAT IMPRESSION: OVERALL FINAL ASSESSMENT: BIRADS 1 NEGATIVE RECOMMENDATION: Routine annual follow-up in 1 Year A letter with findings and recommendations will be mailed to the patient. Reading Location: [id number] CC: Dr. Arsh Llanos DO Developer Support Engineer: Signed Normal [facility] Internal Medicine Office Vis ito 12-25-2024 Internal Medicine Office Visit [facility] [address] [place] [address] [place] [address] OFFICE VISIT Date of Service: 12/25/24 MR#: [id number] Acct: [id number] Name: ALCIDES STEELE Rep #: [id number] : 1960 Provider: Dr. Arsh kelley DO Age/Sex: 64/F Location[place] [facility] Status: Signed Intake Vital Signs 03/20/24 11:19 12/25/24 11:37 Height 5 ft 4 in 5 ft 4 in Weight: 325 lb BMI 55.7 BP 138/88 H Blood Pressure Location Rt brachial Position Sitting Respiration 16 Pulse 78 Pulse Source Monitor Temp 97.1 F L Temp Source Temporal Pulse Oximetry (%) 97 Oxygen Delivery Method room air Intake Visit Reasons: MED FU Chief Complaint: med fu [employer] 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 Accompanied by: Self Is patient in pain?: No Allergies aspirin Allergy (Severe, Verified 12/25/24 11:35) Stomach pain cephalexin Allergy (Mild, Verified 12/25/24 11:35) rash sulfamethoxazole (From Bactrim) Allergy (Mild, Verified 12/25/24 11:35) Rash trimethoprim (From Bactrim) Allergy (Mild, Verified 12/25/24 11:35) Rash Medications ???Medication ???Instructions ???Recorded ???Confirmed ???Type blood pressure kit-extra large #1 ea 04/19/22 04/12/24 Rx clotrimazole 1 % topical cream 1 applic topical BID #30 grams 12/25/24 Rx hydrochlorothiazide 12.5 mg tablet 12.5 mg PO DAILY #90 tabs 12/25/24 Rx lisinopril 20 mg tablet 20 mg PO DAILY #90 TABLETS 5 12/25/24 Rx triamcinolone acetonide 0.1 % 1 applic topical QDAY #30 grams 12/25/24 Rx topical cream Have you fallen in the past year?: No Nurse's Note: colonoscopy and mammogram needed PFSH Medical History Hemorrhoids Stomach ulcer Kidney stones Hives Chronic headaches Arthritis Surgical History History of hysterectomy History of left knee surgery Family History Mother CVA (cerebral vascular accident) Heart disease Father Heart disease Social History Smoking Status: Former smoker alcohol intake: never substance use type: does not use frequency: 3-4 times per week HPI HPI Chief Complaint: med fu Details: ALCIDES STEELE, is a 64 F who presents to the office today for a checkup exam. She needs multiple refills and has questions about itchy ears, swelling of her lower legs, taking medicines for lymphedema, scheduling on mammogram and a colonoscopy, and concerns about weight loss. ROS Const Constitutional: No body ache, excessive sweating, fatigue, fever(s), frequent falls, headache(s), snoring, weakness, weight change, sleep problems or change in appetite Eyes Eyes: No blurry vision, change in vision, eye pain or Light sensitivity ENT ENT: No abnormal hearing, ear or mastoid pain, tinnitus, nasal congestion, headache(s), neck pain or sore throat Resp Respiratory: No cough, shortness of breath, snoring or wheezing Cardio Cardiology: No chest pain at rest, chest pain with exertion, excessive sweating, shortness of breath, dyspnea on exertion, lightheadedness, orthopnea or palpitations Gastro GI: No abdominal pain, change in bowel habits, constipation, cramping, diarrhea, nausea/dyspepsia or vomiting Genitourinary-Female : No burning urination, painful urination, urinary incontinence, urinary frequency, blood in urine, abnormal periods or pelvic pain Musc Musculoskeletal: No abnormal gait, joint pain, back pain, limited range of motion, neck pain, numbness, stiffness, tingling or Arthritis Skin Skin: No dry skin, redness, lesions, itchy eyes, rash or wounds Neuro Neurology: No abnormal gait, abnormal hearing, abnormal speech, dizziness, weakness, frequent falls, headache(s), memory loss, numbness or tingling Psych Psychiatric: No anxiety, No change in appetite, No depression, No memory loss and No Thoughts of harming yourself/Others Endo Endocrine: No cold intolerance, excessive sweating, fatigue, flushing, heat intolerance, increased thirst/drinking, increased hunger or weight change Aller/Imm Allergy/Immunologic: No itchy eyes, seasonal allergy symptoms, hives or wheezing Juan/Lymp Hematologic/Lymphati c: No easy bleeding, easy bruising or enlarged lymph nodes Exam Const General: cooperative Nutritional Appearance: obese morbidly obese Orientation: oriented x3 HENMT Head: normal to inspection Ears: hearing grossly normal bilaterally Nose: external nose normal Mouth: oral mucosae normal Teeth and gingiva: dentition normal Eyes General: appearance normal, both eyes and all related structures Neck Neck: normal visual inspection Thyroid: thyroid normal Chest Chest palpation inspection: normal inspecti (more content not included)... Normal [facility] Surgery Visit Reporton 04-12 Surgery Visit Report [facility] [address] [place] [address] OFFICE VISIT Date of Service: 04/12/24 MR#: [id number] Acct: [id number] Name: IVETTEALCIDES S Rep #: [id number] : 1960 Provider: BINTA richardson Age/Sex: 63/F Location: [facility] Status: Signed Intake Vital Signs 03/20/24 11:19 Height 5 ft 4 in Weight: 306 lb 8 oz BMI 52.6 BP 128/70 H Blood Pressure Location Lt brachial Position Sitting Respiration 16 Pulse 65 Pulse Source Monitor Temp 98.0 F Temp Source Temporal Pulse Oximetry (%) 98 Oxygen Delivery Method room air Intake Visit Reasons: WOUND CHK Chief Complaint: wound chk Allergies aspirin Allergy (Severe, Verified 04/12/24 14:32) Stomach pain cephalexin Allergy (Mild, Verified 04/12/24 14:32) rash sulfamethoxazole (From Bactrim) Allergy (Mild, Verified 04/12/24 14:32) Rash trimethoprim (From Bactrim) Allergy (Mild, Verified 04/12/24 14:32) Rash Medications ???Medication ???Instructions ???Recorded ???Confirmed ???Type blood pressure kit-extra large #1 ea 04/19/22 04/12/24 Rx hydrochlorothiazide 12.5 mg tablet 12.5 mg PO DAILY #90 tabs 06/16/23 04/12/24 Rx meclizine 25 mg tablet 25 mg PO BID PRN dizziness #60 tabs 09/27/23 04/12/24 Rx lisinopril 20 mg tablet 20 mg PO DAILY #90 tabs 03/13/24 04/12/24 Rx potassium chloride 20 mEq 20 meq PO ONCE #1 TAB 03/20/24 04/12/24 Rx tablet,extended release Subjective Details: Patient was urgent added on same day for potential bleeding from the previous perirectal incision. She notes cleaning out her car the week prior in preparation to go on vacation with her sister. She recalls twisting in a certain position almost falling over and felt a tearing sensation at the left incision near the anus. She waited for drainage or bleeding to occur and nothing happened. She notes the following day she woke up with her sheets wet from drainage/bleeding for which she thought may be from the incision on the left side near her anus. Patient notes she was not having any pain. She did note having an additional small amount of blood and some discomfort. She was slightly scared and upon returning from her trip, she wanted to be seen. She has not had any additional drainage. She notes she has been keeping the area clean. She notes her stools have been nice and soft. Objective Details: Anus- left lateral incision completely closed. No active drainage for fluctuance noted. No erythema or signs of infection. There is notable irritation in the midline of the gluteus region that appears raw with a slight amount of fresh bright red blood noted. It appears this may be from moisture breaking down the skin. Coding Level of Care Code Off vis,est,level 2 Diagnoses Perianal abscess K61.0 Skin breakdown R23.8 [facility] Medical History Hemorrhoids Stomach ulcer Kidney stones Hives Chronic headaches Arthritis Surgical History History of hysterectomy History of left knee surgery Family History Mother CVA (cerebral vascular accident) Heart disease Father Heart disease Social History Smoking Status: Former smoker alcohol intake: never substance use type: does not use frequency: 3-4 times per week Assessment and Plan (No Qualifiers) Assessment and Plan (1) Perianal abscess: Status: Acute (2) Skin breakdown: Status: Acute Plan Recommend keeping the midline skin dry and free from moisture May need a barrier such as A D ointment No further issues with the perianal region Follow-up in 2 weeks for final re-evaluation 04/16/24 1413 Date Shira Perry Signature: Date (if applicable) CC: Normal [facility] Surgery Visit Reporton 03-28 Surgery Visit Report [facility] [address] [place] [address] OFFICE VISIT Date of Service: 03/28/24 MR#: [id number] Acct: [id number] Name: ALCIDES STEELE Rep #: [id number] : 1960 Provider: BINTA richardson Age/Sex: 63/F Location[place] [facility] Status: Signed Intake Vital Signs 03/20/24 11:19 Height 5 ft 4 in Weight: 306 lb 8 oz BMI 52.6 BP 128/70 H Blood Pressure Location Lt brachial Position Sitting Respiration 16 Pulse 65 Pulse Source Monitor Temp 98.0 F Temp Source Temporal Pulse Oximetry (%) 98 Oxygen Delivery Method room air Intake Visit Reasons: WOUND CHECK Chief Complaint: perianal abscess ER f/u [employer] 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 Is patient in pain?: No Allergies aspirin Allergy (Severe, Verified 03/28/24 14:02) Stomach pain cephalexin Allergy (Mild, Verified 03/28/24 14:04) rash sulfamethoxazole (From Bactrim) Allergy (Mild, Verified 03/28/24 14:04) Rash trimethoprim (From Bactrim) Allergy (Mild, Verified 03/28/24 14:04) Rash Medications ???Medication ???Instructions ???Recorded ???Confirmed ???Type blood pressure kit-extra large #1 ea 04/19/22 03/21/24 Rx hydrochlorothiazide 12.5 mg tablet 12.5 mg PO DAILY #90 tabs 06/16/23 03/21/24 Rx meclizine 25 mg tablet 25 mg PO BID PRN dizziness #60 tabs 09/27/23 03/21/24 Rx lisinopril 20 mg tablet 20 mg PO DAILY #90 tabs 03/13/24 03/21/24 Rx potassium chloride 20 mEq 20 meq PO ONCE #1 TAB 03/20/24 03/21/24 Rx tablet,extended release Have you fallen in the past year?: No PFSH Medical History Hemorrhoids Stomach ulcer Kidney stones Hives Chronic headaches Arthritis Surgical History History of hysterectomy History of left knee surgery Family History Mother CVA (cerebral vascular accident) Heart disease Father Heart disease Social History Smoking Status: Former smoker alcohol intake: never substance use type: does not use frequency: 3-4 times per week HPI HPI HPI: Patient returns for a follow-up visit from a perianal abscess that was opened and drained by the ED on 03/17/24. Patient returns noting the area is improving. She notes the pain/discomfort has resolved. She notes she had 2 1/2 days left of antibiotics and had developed a rash all over her body, so she stopped the antibiotics. She denies any fever. She notes her stools are improved. She has been performing daily sitz bathes. Exam GI Other: Anus- left lateral side with small superficial healing wound with healthy granulation tissue. No drainage noted. No erythema noted. Assessment and Plan Assessment and Plan (1) Abscess of left buttock: Status: Acute Plan: May stop sitz bathes at this time No further antibiotic treatment needed Recommend follow-up in 1 month for re-evaluation Coding Level of Care Code Off vis,est,level 3 Diagnoses Abscess of left buttock L02.31 Clinical Quality Measures Falls Risk Screening/Assistive Devices Have you fallen in the past year?: No 03/29/24 1451 Date Shira Perry Signature: Date (if applicable) CC: Normal [facility] Culture, Anaerobic Any Sourc nunu 03-25-2024 CUAN No anaerobic bacteria isolated. Normal [facility] Comment on above: Performed By: #### M 100.4001, M100.2000, M100.3000 #### [facility] [address] [place], [address] Wound Cultureon 03-25-2024 #2, 3 GROWTH IN THIOGLYCOLATE BROTH ONLY. #3 Susceptibility not normally performed on this organism. Klebsiella pneumoniae sp pneum Amount Growth Rare Enterococcus faecalis Amount Growth Very Rare Corynebacterium jeikeium Amount Growth Very Rare Klebsiella pneumoniae sp pneum: REACTION Ampicillin Islt AMNA R Ampicillin+Sulbac Islt AMNA 4 S ceFAZolin Islt AMNA <=4 S Cefepime Islt AMNA <=0.12 S cefTRIAXone Islt AMNA <=0.25 S Ciprofloxacin Islt AMNA <=0.25 S Ertapenem Islt AMNA <=0.12 S B-Lactamase Extended Susc Islt NEG Gentamicin Islt AMNA <=1 S Imipenem Islt AMNA <=0.25 S levoFLOXacin Islt AMNA <=0.12 S Pip+Tazo Islt AMNA <=4 S Tobramycin Islt AMNA <=1 S TMP SMX Islt AMNA <=20 S Enterococcus faecalis: REACTION Ampicillin Islt AMNA <=2 S Gentamicin Synergy Susc Islt SYN-S S Linezolid Islt AMNA 2 S Streptomycin High Pot Susc Islt SYN-S S Vancomycin Islt AMNA 1 S Normal [facility] Comment on above: Performed By: #### M 100.4001, M100.2000, M100.3000 #### [facility] [address] [place], [address] Gram Stainon 03-22-2024 GS Gram Stain Rare White Blood Cells No organisms seen No Epithelial cells Normal [facility] Comment on above: Performed By: #### M 100.4001, M100.2000, M100.3000 #### [facility] [address] [place], [address] Surgery Visit Reporton 03-21 Surgery Visit Report [facility] [address] [place], [place] [address] OFFICE VISIT Date of Service: 03/21/24 MR#: [id number] Acct: [id number] Name: ALCIDES STEELE Rep #: [id number] : 1960 Provider: BINTA richardson Age/Sex: 63/F Location: [facility] Status: Signed Intake Vital Signs 03/17/24 10:41 03/20/24 11:19 Height 5 ft 4 in 5 ft 4 in Intake Visit Reasons: Perianal abscess ER F/U Chief Complaint: perianal abscess ER f/u Is patient in pain?: No Allergies aspirin Allergy (Severe, Verified 03/21/24 14:21) Stomach pain Medications ???Medication ???Instructions ???Recorded ???Confirmed ???Type blood pressure kit-extra large #1 ea 04/19/22 03/21/24 Rx hydrochlorothiazide 12.5 mg tablet 12.5 mg PO DAILY #90 tabs 06/16/23 03/21/24 Rx meclizine 25 mg tablet 25 mg PO BID PRN dizziness #60 tabs 09/27/23 03/21/24 Rx lisinopril 20 mg tablet 20 mg PO DAILY #90 tabs 03/13/24 03/21/24 Rx cephalexin 500 mg capsule 500 mg PO Q6 #40 CAPSULES 03/17/24 03/21/24 Rx sulfamethoxazole 800 1 tab PO BID 10 days #20 tabs 03/17/24 03/21/24 Rx mg-trimethoprim 160 mg tablet (Bactrim DS) potassium chloride 20 mEq 20 meq PO ONCE #1 TAB 03/20/24 03/21/24 Rx tablet,extended release Have you fallen in the past year?: No PFSH Medical History Hemorrhoids Stomach ulcer Kidney stones Hives Chronic headaches Arthritis Surgical History History of hysterectomy History of left knee surgery Family History Mother CVA (cerebral vascular accident) Heart disease Father Heart disease Social History Smoking Status: Former smoker alcohol intake: never substance use type: does not use frequency: 3-4 times per week HPI HPI HPI: Patient is a 63 y/o F I am following for a perianal abscess. Patient notes over a week ago she had placed herself on a carnivore diet. She notes having significant diarrhea from this diet having to use the bathroom numerous times per day. She notes last having a painful lump on the left side of her buttock. She attributes this lump from having numerous episodes of diarrhea. She went to the ED on 03/17/24. A CT scan of the pelvis was obtained with contrast demonstrating no fluid collection at the site. There is notable inflammation in the area of the painful lump. An incision and drainage was completed in the ED with little to no purulent material expressed. Patient was provided Keflex and Bactrim x 10 days. Patient notes on Tuesday morning around 3 AM, she woke up to a large wet area in her bed. She notes the painful lump had ruptured and there was evidence of brown/purulent malodorous fluid on a towel she had laid in the bed. Patient was then evaluated by her PCP on Tuesday, who was concerned the patient may have additional un-drained fluid collection medial to the open incision. Patient notes she is feeling much improved. She notes a burning sensation now and is only able to sit for short periods of time due to the burning sensation. She is tolerating the antibiotics okay. She notes her stool is starting to firm up. She continues to note some drainage on the gauze pad. She notes feeling clammy at times. No true fever. ROS General General: Yes weight change; No appetite, fatigue, colon cancer, breast cancer or weakness HEENT HEENT: No difficulty swallowing, eye injury, eye surgery, swollen glands or hoarseness Endo Endocrine: No thyroid disease, diabetes mellitus, thyroid cancer, Hair loss, heat intolerance or cold intolerance Skin Skin: No rash or changing moles Musc Musculoskeletal: No back problems, arthritis, rheumatoid arthritis, gout or joint pain Cardio Cardiovascular: No murmur, pacemaker, heart disease, atrial fibrillation, high blood pressure, heart attack, heart stent, palpitations, shortness of breat with exertion or chest pain Psych Psychiatric: No depression, anxiety or hearing voices Resp Respiratory: No shortness of breath, No sleep apnea, No cough, No COPD, No asthma, No emphysema and No wheezing Gastro Gastrointestinal: No abdominal pain, No nausea or vomiting, No diarrhea, No constipation, No blood in stool, No acid reflux, No hemorrhoids, Yes ulcers, No gallbladder problem and No black,tarry stoo ls Juan Hematologic: No blood thinners, No blood disorders, No bleeding, No anemia and No blood clots Neuro Neurologic: No numbness, No tingling and No weakness Exam Const General: cooperative, comfortable and no acute distress GI Other: Anal region- left lateral moderate sized open wound from I D in the ED. There is healthy gr (more content not included)... Normal [facility] Internal Medicine Office Vis itouma 03-20-2024 Internal Medicine Office Visit [facility] [address] [place], [place] [address] OFFICE VISIT Date of Service: 03/20/24 MR#: [id number] Acct: [id number] Name: ALCIDES STEELE Rep #: [id number] : 1960 Provider: RANDY arce Age/Sex: 63/F Location[place] [facility] Status: Signed Intake Vital Signs 03/17/24 10:41 03/20/24 11:19 Height 5 ft 4 in 5 ft 4 in Weight: 306 lb 8 oz BMI 52.6 BP 128/70 H Blood Pressure Location Lt brachial Position Sitting Respiration 16 Pulse 65 Pulse Source Monitor Temp 98.0 F Temp Source Temporal Pulse Oximetry (%) 98 Oxygen Delivery Method room air Intake Visit Reasons: ACUTE - BURST CYST ON LFT BUTTOCK Chief Complaint: cyst on left buttock [employer] 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 Accompanied by: Self Is patient in pain?: No Allergies aspirin Allergy (Severe, Verified 03/20/24 11:15) Stomach pain Medications ???Medication ???Instructions ???Recorded ???Confirmed ???Type blood pressure kit-extra large #1 ea 04/19/22 03/20/24 Rx hydrochlorothiazide 12.5 mg tablet 12.5 mg PO DAILY #90 tabs 06/16/23 03/20/24 Rx meclizine 25 mg tablet 25 mg PO BID PRN dizziness #60 tabs 09/27/23 03/20/24 Rx lisinopril 20 mg tablet 20 mg PO DAILY #90 tabs 03/13/24 03/20/24 Rx cephalexin 500 mg capsule 500 mg PO Q6 #40 CAPSULES 03/17/24 03/20/24 Rx sulfamethoxazole 800 1 tab PO BID 10 days #20 tabs 03/17/24 03/20/24 Rx mg-trimethoprim 160 mg tablet (Bactrim DS) potassium chloride 20 mEq 20 meq PO ONCE #1 TAB 03/20/24 03/20/24 Rx tablet,extended release PFSH Medical History Hemorrhoids Stomach ulcer Kidney stones Hives Chronic headaches Arthritis Surgical History History of hysterectomy History of left knee surgery Family History Mother CVA (cerebral vascular accident) Heart disease Father Heart disease Social History Smoking Status: Former smoker alcohol intake: never substance use type: does not use frequency: 3-4 times per week HPI HPI Chief Complaint: cyst on left buttock Details: ALCIDES STEELE, is a 63 F who presents to the office today for an acute visit due to left buttock abscess x 5 days/ Patient presented to urgent care on 03/17/2024 for similar complaints and was referred to emergency department. Incision and drainage was performed in emergency department as well as CT of the pelvis to rule out deep abscess which demonstrated no obvious abscess but indurated tissue. Apparently this was reviewed with general surgeon on-call. Patient was prescribed Keflex and Bactrim x 10 days and encouraged to follow-up with general surgery however her appointment is scheduled for next month. She reports she continues to have yellow drainage from the area and discomfort. She has chills but checks her temperature at home and is afebrile. She does feel sweaty at times. She additionally reports that she has had diarrhea for the past 10 days since beginning a carnivore diet. Diarrhea has been unchanged with the addition of antibiotics and is watery and yellow. No vaginal discharge. ROS Const Constitutional: No body ache, chills, excessive sweating, fatigue, fever(s), frequent falls, headache(s), snoring, weakness or change in appetite Eyes Eyes: No blurry vision, change in vision, eye pain or Light sensitivity ENT ENT: No abnormal hearing, ear or mastoid pain, tinnitus, nasal congestion, headache(s), neck pain or sore throat Resp Respiratory: No cough, shortness of breath, snoring or wheezing Cardio Cardiology: No chest pain at rest, chest pain with exertion, excessive sweating, dyspnea on exertion, lightheadedness, orthopnea or palpitations Gastro GI: No abdominal pain, change in bowel habits, constipation, cramping, diarrhea, nausea/dyspepsia or vomiting Genitourinary-Female : No burning urination, painful urination, urinary incontinence or urinary frequency Musc Musculoskeletal: No abnormal gait, joint pain, back pain, limited range of motion, muscle weakness, neck pain or numbness Skin Skin: No dry skin, redness, lesions, itchy eyes, rash or wounds Neuro Neurology: No abnormal gait, abnormal hearing, weakness, frequent falls, headache(s), memory loss or numbness Psych Psychiatric: No anxiety, No change in appetite, No depression, No memory loss and No Thoughts of harming yourself/Others Endo Endocrine: No cold intolerance, excessive sweating, fatigue, flushing, heat intolerance, increased thirst/drinking or increased hunger Aller/Imm Allergy/Immunologic: No itchy eyes, seasonal allergy symptoms, hives or wheezing Juan/Lymp Hematologic/Lymphati c: No easy bleeding or easy bruis (more content not included)... Normal [facility] Emergency Department Summary on 03-17-2024 Emergency Department Summary [facility] Medical Records Department [address] [place] [address] Emergency Department Summary 03/17/24 MR#: [id number] Acct: [id number] Name: ALCIDES STEELE Rep #: [id number] : 1960 63 From: Jamari Pike MD PCP: Dr. Arsh Llanos, DO Status:[place] [facility] Location: ED HPI History of Present Illness Chief Complaint: Abscess Informant: patient Onset/Context/Timing Onset: Days Context: Gradual Onset Timing: Continuous Current Severity: Mild Maximum Severity: Mild Narrative Narrative: 63-year-old female left buttock abscess last several days. No prior history. Denies being diabetic. No other complaints. Was seen in urgent care and sent to the ER. Prior similar symptoms: No Recent Illness/Hospitalizat ion: No PFSH PFSH Medical History Hemorrhoids Stomach ulcer Kidney stones Hives Chronic headaches Arthritis Home Medications ???Medication ???Instructions ???Recorded ???Last Taken ???Type blood pressure kit-extra large #1 ea 04/19/22 Unknown Rx hydrochlorothiazide 12.5 mg tablet 12.5 mg PO DAILY #90 tabs 06/16/23 Unknown Rx meclizine 25 mg tablet 25 mg PO BID PRN dizziness #60 tabs 09/27/23 Unknown Rx lisinopril 20 mg tablet 20 mg PO DAILY #90 tabs 03/13/24 Unknown Rx cephalexin 500 mg capsule 500 mg PO Q6 #40 CAPSULES 03/17/24 Unknown Rx sulfamethoxazole 800 1 tab PO BID 10 days #20 tabs 03/17/24 Unknown Rx mg-trimethoprim 160 mg tablet (Bactrim DS) Allergy/AdvReac Type Severity Reaction Status Date / Time aspirin Allergy Severe Stomach Verified 03/17/24 10:42 pain Family History Mother CVA (cerebral vascular accident) Heart disease Father Heart disease Surgical History History of hysterectomy History of left knee surgery Social History Smoking Status: Former smoker alcohol intake: never substance use type: does not use frequency: 3-4 times per week ROS ROS ED ROS Narrative Left flank discomfort. Constitutional Constitutional ED: Denies chills or fever(s) Eyes Eyes: Denies blurry vision ENT ENT ED: Denies ear pain Cardiovascular Cardiovascular: Denies chest pain Respiratory/Chest Respiratory/Chest: Denies dyspnea Gastrointestinal Gastrointestinal: Denies abdominal pain Genitourinary Genitourinary ED: Denies dysuria or hematuria Musculoskeletal Musculoskeletal: Denies arthralgias Integumentary Denies abscess Neurologic Neurologic: Denies headache(s) Psychiatric Psychiatric: Denies anxiety Endocrine Endocrinology: Denies cold intolerance Hematologic/Lymphati c Hematologic/Lymphati c: Reports none Allergic/Immunologic Allergic/Immunologic ED: Denies mouth swelling or tongue swelling EXAM Physical Exam Narrative Exam Narrative: Well-appearing 63-year-old female. Vital signs stable afebrile. H EENT exam unremarkable. Lungs clear. Heart regular rhythm rate about 80 no murmur. Chest wall nontender. Abdomen soft nonten loren. Moving all 4 extremities. Nontender no edema. Left buttock medial cheek lower aspect is indurated tissue palpable abscess. No significant cellulitis. Tender to palpation. Does not involve the rectum. Patient is awake and alert. Answering questions and following commands. Const Vital Signs: 03/17/24 10:41 03/17/24 13:21 03/17/24 15:00 Temperature 96.2 F L Temperature Source Temporal Pulse Rate 81 74 87 Respiratory Rate 19 H 16 16 Blood Pressure 150/82 H 127/46 H 132/78 H Blood Pressure Mean 104 73 96 Pulse Ox 96 98 98 Oxygen Delivery Method Room Air Room Air Positive well nourished and well developed; Negative for cachectic, contractures or unkempt General Appearance ED: well developed and NAD; Negative for unkempt, cachectic, contractures, cyanotic, diaphoretic or pallor Nutritional Appearance: Negative for cachectic HEENT Reports moist mucous membranes Negative for trauma or tenderness Eyes PERRL and EOMs intact bilaterally General Eye ED: Negative for pale conjunctiva, scleral icterus or other Neck no lymphadenopathy, supple and no JVD General: Negative for tenderness or other Chest Wall inspection of chest normal and palpation of chest normal Chest: Negative for other Resp normal respiratory effort and clear to auscultation bilaterally Effort and Inspection: Negative for retractions Auscultation: Negative for rales, rhonchi, wheezes or diminished lung sounds Cardio regular rate, regular rhythm, S1 normal heart sound, S2 normal heart sound and no murmurs Palpation: Negative for palpable S3 or palpable S4 Rate: Negative for bradycardia or tachycardic Rhythm: Negative for abnorm (more content not included)... Normal [facility] Pelvis without IV Contraston 03-17-2024 Pelvis without IV Contrast [facility] Imaging Services [address] [place] [address] Pelvis without IV Contrast MR#: [id number] Acct: [id number] Name: ALCIDES STEELE Rep #: [id number] : 1960 F 63 From: Lance Hines MD PCP: Dr. Arsh Llanos, DO Status: REG ER Study: Pelvis without IV Contrast Date of Exam: 03/17 Exam# [id number] Ordering Dr: Jamari Pike MD [id number] EXAM: CT PELVIS WITHOUT INTRAVENOUS CONTRAST CLINICAL INDICATION: left buttock abscess TECHNIQUE: Helically acquired images were obtained of the pelvis without intravenous contrast. This CT exam was performed using one or more of the following dose reduction techniques: automated exposure control, adjustment of the mA and/or kV according to patient size, and/or use of iterative reconstruction technique. COMPARISON: No relevant prior studies available. FINDINGS: BOWEL: Unremarkable as visualized. No bowel distention. No focal inflammatory change. APPENDIX: No evidence of acute appendicitis. INTRAPERITONEAL SPACE: Normal. No ascites or other fluid collection. No free air. BLADDER: Normal. REPRODUCTIVE: Hysterectomy noted. BONES/JOINTS: No suspicious lytic or blastic abnormality. SOFT TISSUES: The visualized subcutaneous tissues of the buttocks appear normal. The buttocks however are not imaged in their entirety. No pelvic wall hernia. LYMPH NODES: Normal. No enlarged lymph nodes. CT/Pelvis without IV Contrast IMPRESSION: Incomplete evaluation of the buttocks. No abnormality noted within the visualized portions of the pelvis. Electronically Signed: Lance Hines MD at 15:16 EDT , CC: Dr. Arsh Llanos, DO; Dr. Jamari Pike MD Developer Support Engineer: Signed Normal [facility] Urgent Care Visit Reporton 0 03-17-2024 Urgent Care Visit Report [facility] [address], [address] [place] [address] OFFICE VISIT Date of Service: 03/17/24 MR#: [id number] Acct: [id number] Name: ALCIDES STEELE Rep #: [id number] : 1960 Provider: LEODAN Masterson Age/Sex: 63/F Location: [facility] Status: Signed Intake Vital Signs 03/13/24 14:32 03/17/24 10:10 Height 5 ft 4 in 5 ft 4 in Weight: 311 lb 2 oz 305 lb BMI 53.4 52.3 BP 160/90 H 158/62 H Blood Pressure Location Lt brachial Lt brachial Position Sitting Sitting Respiration 16 20 H Pulse 72 78 Pulse Source Monitor NIBP Temp 97.2 F L 97.8 F Temp Source Temporal Temporal Pulse Oximetry (%) 99 95 Oxygen Delivery Method room air room air Intake Visit Reasons: BOIL ON L BUTTOCKS Chief Complaint: left upper thigh abscess [employer] 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 Is patient in pain?: Yes Allergies aspirin Allergy (Severe, Verified 03/17/24 10:42) Stomach pain Medications ???Medication ???Instructions ???Recorded ???Confirmed ???Type blood pressure kit-extra large #1 ea 04/19/22 03/13/24 Rx hydrochlorothiazide 12.5 mg tablet 12.5 mg PO DAILY #90 tabs 06/16/23 03/17/24 Rx meclizine 25 mg tablet 25 mg PO BID PRN dizziness #60 tabs 09/27/23 03/17/24 Rx lisinopril 20 mg tablet 20 mg PO DAILY #90 tabs 03/13/24 03/17/24 Rx Is last menstrual period known: No Post menopausal: Yes Patient : No Have you fallen in the past year?: No Nurse's Note: posterior left upper thigh abscess x 2 days. +pain -drainage -bleeding -fever. PFSH Medical History Hemorrhoids Stomach ulcer Kidney stones Hives Chronic headaches Arthritis Surgical History History of hysterectomy History of left knee surgery Family History Mother CVA (cerebral vascular accident) Heart disease Father Heart disease Social History Smoking Status: Former smoker alcohol intake: never substance use type: does not use frequency: 3-4 times per week HPI HPI Chief Complaint: left upper thigh abscess Details: ALCIDES STEELE, is a 63 F who presents to the office today for evaluation of an area of tenderness and erythema in the gluteal region. Patient states she noted that the area of concern became painful and inflamed approximately 2 days ago with progressive worsening since onset. She states that she has not utilized any treatment for this issue and denies injury to the area. Patient notes that she recently transitioned to a carnivore diet prior to symptom onset and is unsure if this could be contributing, patient has noted regular bowel movements since change in diet. Patient denies discharge, bleeding, fever, chills, and constipation. Patient also notes difficulty with hemorrhoids but denies bleeding of the hemorrhoids at this time. ROS Const Constitutional: No body ache, chills, fatigue or fever(s) Gastro GI: Positive for change in bowel habits and other (rectal pain); No abdominal pain, constipation or diarrhea Genitourinary-Female : No difficulty urinating, burning urination, painful urination, urinary frequency or urinary urgency Skin Skin: Positive for boil, redness and rash; No skin ulcer Endo Endocrine: No fatigue Exam Const General: cooperative, healthy appearing and no acute distress GI Rectal Exam: hemorrhoids (external, non-inflamed ) Skin Other: Large area of erythema and thickening of the skin present along the left gluteal region just lateral to the anus. The area is approximately 5cm in diameter with fluctuance at the center measuring approximately 1-1.5cm in diameter. There is exquisite tenderness on palpation of the area without drainage. Consistent with perianal abscess and surrounding cellulitis. Coding Level of Care Code New Pt Off vis,new,level 3 Patient Type New History Problem Focused Exam Problem Focused Medical Decision Making Moderate Complexity Diagnoses Perianal abscess K61.0 Assessment and Plan Assessment and Plan (1) Perianal abscess: Status: Acute Plan: Due to large size and suspected presence of absence near to the anal sphincter patient encouraged to seek evaluation in the ER for I D as indicated. Discussed potential risk with incision in office due to close localization to the anal sphincter and risk for incontinence. Due to severity of pain and shared decision making patient agreed to evaluation in the ER for definitive management. Patient transported [facility]. Clinical Quality Measures Falls Risk Screening/Assistive Devices Have you fallen in the past year?: No 03/17 (more content not included)... Normal [facility] Comprehensive Metabolic Prof brianon 03-13-2024 Albumin [Mass/Vol] 4.1 g/dL Normal 3.2-5.[address] [facility] Comment on above: Performed By: #### M 100.4001, M100.2000, M100.3000 #### [facility] Laboratory [address] [place], [address] Albumin/Globulin [Mass ratio] 1.1 {ratio} Normal 0.9-2.4 [facility] Comment on above: Performed By: #### M 100.4001, , #### [facility] [address] [place], [address] ALK P 70 U/L Normal 45-117 [facility] Comment on above: Performed By: #### M 100.4001, , #### [facility] [address] [place], [address] ALT [Catalytic activity/Vol] 45 U/L Normal 13-56 [facility] Comment on above: Performed By: #### M 100.4001, , #### [facility] [address] [place], [address] AST [Catalytic activity/Vol] 33 U/L Normal 15-37 [facility] Comment on above: Performed By: #### M 100.4001, , #### [facility] [address] [place], [address] Bilirubin [Mass/Vol] 1.20 mg/dL High 0.20-1.00 [facility] Comment on above: Result Comment: For patients on eltrombopag therapy, use of Dimension [place] TBIL is not recommended. Performed By: #### M 100.4001, , #### [facility] [address] [place], [address] BUN/CRE 14.8 RATIO Normal 10-20 [facility] Comment on above: Performed By: #### M 100.4001, , #### [facility] [address] [place], [address] CA,Total 10.1 mg/dL Normal 8.5-10.1 [facility] Comment on above: Performed By: #### M 100.400, , #### [facility] [address] [place], [address] Chloride [Moles/Vol] 99 mmol/L Normal 98-107 [facility] Comment on above: Performed By: #### M 100.400, , #### [facility] [address] [place], [address] CO2 [Moles/Vol] 27.0 mmol/L Normal 21.0-32.0 [facility] Comment on above: Performed By: #### M 100.400, , #### [facility] [address] [place], [address] Creatinine [Mass/Vol] 0.95 mg/dL Normal 0.55-1.02 [facility] Comment on above: Result Comment: The validity of the calculated GFR GFRAA in patients over 70 years has not been determined. Clinical correlation is essential. Performed By: #### M 100.400, , #### [facility] [address] [place], [address] EST GFR - AA 76 mL/min Normal >60 [facility] Comment on above: Result Comment: Afri can Malian GFR Calc Performed By: #### M 100.400, , #### [facility] [address] [place], [address] GAP 10 Normal 5-15 [facility] Comment on above: Performed By: #### M 100.400, , #### [facility] [address] [place], [address] GFR/1.73 sq M.predicted among non-blacks MDRD (S/P/Bld) [Vol rate/Area] 63 mL/min/{1.73_m2} Normal >60 [facility] Comment on above: Result Comment: Non- GFR Calc Performed By: #### M 100.400, , #### [facility] [address] [place], [address] Globulin (S) [Mass/Vol] 3.7 g/dL Normal 2.2-4.2 [facility] Comment on above: Performed By: #### M 100.400, , #### [facility] [address] [place], [address] Glucose [Mass/Vol] 87 mg/dL Normal 74-[address] [facility] Comment on above: Performed By: #### M 100.400, , #### [facility] [address] [place], [address] Potassium [Moles/Vol] 3.4 mmol/L Low 3.5-5.1 [facility] Comment on above: Performed By: #### M 100.400, , 3000 #### [facility] [address] [place], [address] Sodium [Moles/Vol] 136 mmol/L Normal 136-[address] [facility] Comment on above: Performed By: #### M 100.4001, , .3000 #### [facility] [address] [place], [address] T PROT 7.8 g/dL Normal 6.4-8.2 [facility] Comment on above: Performed By: #### M 100.4001, , .3000 #### [facility] [address] [place], [address] Urea nitrogen [Mass/Vol] 14 mg/dL Normal 7-18 [facility] Comment on above: Performed By: #### M 100.4001, M100.2000, M100.3000 #### [facility] [address] [place], [address] Internal Medicine Office Vis iton 03-13-2024 Internal Medicine Office Visit [facility] [address] [place] [address] [place] [address] OFFICE VISIT Date of Service: 03/13/24 MR#: [id number] Acct: [id number] Name: ALCIDES STEELE Rep #: [id number] : 1960 Provider: Dr. Arsh kelley DO Age/Sex: 63/F Location[place] [facility] [place] Status: Signed Intake Vital Signs 09/27/23 09:33 03/13/24 14:32 Height 5 ft 4 in 5 ft 4 in Weight: 323 lb 311 lb 2 oz BMI 55.4 53.4 BP 124/70 H 160/90 H Blood Pressure Location Lt brachial Lt brachial Position Sitting Sitting Respiration 16 16 Pulse 68 72 Pulse Source Monitor Monitor Temp 97.1 F L 97.2 F L Temp Source Temporal Temporal Pulse Oximetry (%) 97 99 Oxygen Delivery Method room air room air Intake Visit Reasons: HIGH BP Chief Complaint: high bp 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 Accompanied by: Self Is patient in pain?: No Allergies aspirin Allergy (Severe, Verified 03/13/24 14:29) Stomach pain Medications ???Medication ???Instructions ???Recorded ???Confirmed ???Type omeprazole 20 mg capsule,delayed 20 mg PO DAILY belching #30 caps 01/15/22 03/13/24 Rx release blood pressure kit-extra large #1 ea 04/19/22 03/13/24 Rx hydrochlorothiazide 12.5 mg tablet 12.5 mg PO DAILY #90 tabs 06/16/23 03/13/24 Rx triamcinolone acetonide 0.1 % 1 applic topical DAILY #15 grams 06/16/23 03/13/24 Rx topical ointment sucralfate 1 gram tablet (Carafate) 1 g PO QACHS #40 tabs 09/06/23 03/13/24 Rx fluticasone propionate 50 2 spray intranasal BID #16 grams 09/27/23 03/13/24 Rx mcg/actuation nasal spray,suspension meclizine 25 mg tablet 25 mg PO BID PRN dizziness #60 tabs 09/27/23 03/13/24 Rx lisinopril 20 mg tablet 20 mg PO DAILY #90 tabs 03/13/24 03/13/24 Rx PFSH Medical History Stomach ulcer Kidney stones Hives Chronic headaches Arthritis Surgical History History of hysterectomy History of left knee surgery Family History Mother CVA (cerebral vascular accident) Heart disease Father Heart disease Social History Smoking Status: Former smoker alcohol intake: never substance use type: does not use frequency: 3-4 times per week HPI HPI Chief Complaint: high bp Details: ALCIDES STEELE, is a 63 F who presents to the office today for concerns about her blood pressure. She comes in bringing several readings in general that are quite high with her systolic being about 160 and her diastolic being in the mid 80s. She says she does not have headaches and really does not feel significantly different. She has been on what she calls a carnivore his diet which consists of intermittent fasting when she is only eating protein. ROS Const Constitutional: No body ache, chills, excessive sweating, fatigue, fever(s), frequent falls, headache(s), snoring, weakness or change in appetite Eyes Eyes: No blurry vision, change in vision, eye pain or Light sensitivity ENT ENT: No abnormal hearing, ear or mastoid pain, tinnitus, nasal congestion, headache(s), neck pain or sore throat Resp Respiratory: No cough, shortness of breath, snoring or wheezing Cardio Cardiology: No chest pain at rest, chest pain with exertion, excessive sweating, dyspnea on exertion, lightheadedness, orthopnea or palpitations Gastro GI: No abdominal pain, change in bowel habits, constipation, cramping, diarrhea, nausea/dyspepsia or vomiting Genitourinary-Female : No burning urination, painful urination, urinary incontinence or urinary frequency Musc Musculoskeletal: No abnormal gait, joint pain, back pain, limited range of motion, muscle weakness, neck pain or numbness Skin Skin: No dry skin, redness, lesions, itchy eyes, rash or wounds Neuro Neurology: No abnormal gait, abnormal hearing, weakness, frequent falls, headache(s), memory loss or numbness Psych Psychiatric: No anxiety, No change in appetite, No depression, No memory loss and No Thoughts of harming yourself/Others Endo Endocrine: No cold intolerance, excessive sweating, fatigue, flushing, heat intolerance, increased thirst/drinking or increased hunger Aller/Imm Allergy/Immunologic: No itchy eyes, seasonal allergy symptoms, hives or wheezing Juan/Lymp Hematologic/Lymphati c: No easy bleeding or easy bruising Exam Const General: cooperative Nutritional Appearance: obese morbidly obese Orientation: oriented x3 HENMT Head: normal to inspection Ears: hearing grossly normal bilaterally Nose: external nose normal Mouth: oral mucosae normal Teeth and gingiva: dentition normal Eyes General: appearance normal, both eyes and all related structures Neck Neck: normal visual inspection Thyroid: thy (more content not included)... Normal [facility] Basophil percentageOrdered B y: Arsh Brown on 06-16-2023 Bilirubin [Mass/Vol] 1.00 mg/dL 0.20-1.00 [facility] Comment on above: For patients on eltr ombopag therapy, use of Dimension [place] TBIL is not recommended. Chloride [Moles/Vol] 104 mmol/L 98-107 [facility] Glucose [Mass/Vol] 105 mg/dL 74-[address] [facility] Comment on above: Fasting Glucose resu lt from 100 to 125 mg/dL suggests IMPAIRED HOMEOSTASIS per A.D.A. criteria. Potassium [Moles/Vol] 4.0 mmol/L 3.5-5.1 [facility] Protein [Mass/Vol] 7.5 g/dL 6.4-8.[address] [facility] Sodium [Moles/Vol] 139 mmol/L 136-[address] [facility] Laboratory - Chemistry and C hemistry - challengeOrdered By: Arsh Viet on 06-16-2023 ALP [Catalytic activity/Vol] 67 U/L 45-117 [facility] ALT [Catalytic activity/Vol] 49 U/L 13-56 [facility] CO2 [Moles/Vol] 27.0 mmol/L 21.0-32.0 [facility] Globulin (S) [Mass/Vol] 3.4 g/dL 2.2-4.2 [facility] Urea nitrogen/Creatinine [Mass ratio] 21.6 mg/mg 10-20 [facility] No Panel InformationOrdered By: Arsh Llanos on 06-16-2023 Estimated GFR (MDRD) Amer 78 mL/min >60 [facility] Comment on above: GFR Calc Estimated GFR (MDRD) Non-Af Amer 65 mL/min >60 [facility] Comment on above: Non- GFR Calc Serum or plasma albumin lilia urement (mass/volume)Ordered By: Arsh Llanos on 06-16-2023 Albumin [Mass/Vol] 4.1 g/dL 3.2-5.[address] [facility] Serum or plasma albumin/glob ulin mass ratioOrdered By: Arsh Llanos on 06-16-2023 Albumin/Globulin [Mass ratio] 1.2 {ratio} 0.9-2.4 [facility] Serum or plasma calcium lilia urement (mass/volume)Ordered By: Arsh Llanos on 06-16-2023 Calcium [Mass/Vol] 9.3 mg/dL 8.5-10.[address] [facility] Serum or plasma creatinine m easurement (mass/volume)Ordered By: Arsh Llanos on 06-16-2023 Creatinine [Mass/Vol] 0.93 mg/dL 0.55-1.02 [facility] Comment on above: The validity of the calculated GFR & GFRAA in patients over 70 years has not been determined. Clinical correlation is essential. Serum or plasma urea nitroge n measurement (mass/volume)Ordered By: Arsh Llanos on 06-16-2023 Urea nitrogen [Mass/Vol] 20 mg/dL 7-18 [facility] Thin prep Papanicolaou smear with manual screeningOrdered By: Arsh Llanos on 06-16-2023 Thin prep Papanicolaou smear with manual screening 33 U/L 15-37 [facility] Thin prep Papanicolaou smear with manual screening 8 5-15 [facility] Absolute lymphocyte counton 01-15-2022 Lymphocytes Auto (Unsp spec) [#/Vol] 2.69 10*3/uL 0.83-4.51 [facility] Work Phone: Basophil percentageon 2021 Basophil percentage 0 SEEN /hpf 0-5 [facility] Work Phone: [phone] Basophils/100 WBC (Bld) 0.7 % 0-1 [facility] Work Phone: Bilirubin [Mass/Vol] 0.60 mg/dL 0.20-1.00 [facility] Work Phone: Comment on above: For patients on eltr ombopag therapy, use of Dimension [place] TBIL is not recommended. Chloride [Moles/Vol] 107 mmol/L 98-107 [facility] Work Phone: Cholesterol [Mass/Vol] 165 mg/dL <200 [facility] Work Phone: Comment on above: <200 mg/dL Desirable 200-240 mg/dL Borderline >240 mg/dL High Risk Eosinophils/100 WBC (Bld) 1.9 % 0-5 [facility] Work Phone: Glucose [Mass/Vol] 92 mg/dL 74-[address] [facility] Work Phone: Neutrophils (Bld) [#/Vol] 3.9 10*3/uL 2.0-7.7 [facility] Work Phone: Neutrophils/100 WBC (Bld) 52.3 % 47-70 [facility] Work Phone: Potassium [Moles/Vol] 4.4 mmol/L 3.5-5.1 [facility] Work Phone: Protein [Mass/Vol] 7.3 g/dL 6.4-8.[address] [facility] Work Phone: Sodium [Moles/Vol] 140 mmol/L 136-[address] [facility] Work Phone: Triglyceride [Mass/Vol] 161 mg/dL <199 [facility] Work Phone: Comment on above: The drugs N-Acetylcy steine and Metamizole may falsely depress this assay.Serum Triglycerides Reference Interval Normal <150 mg/dL Borderline high 150 - 199 mg/dL High 200 - 499 mg/dL Very High > or = 500 mg/dL WBC (Bld) [#/Vol] 7.5 10*3/uL 4.4-11.[address] [facility] Work Phone: Bilirubin Test strip Ql (U)o n 01-15-2022 Bilirubin Ql (U) Negative Negative [facility] Work Phone: Blood erythrocytes count (nu mber/volume)on 01-15-2022 RBC (Bld) [#/Vol] 4.84 10*6/uL 4[facility]2-5.4 [facility]: Blood hemoglobin measurement (mass/volume)on 01-15-2022 Hemoglobin (Bld) [Mass/Vol] 13.8 g/dL 12.0-15.0 [facility] Work Phone: Blood lymphocytes/100 leukoc yteson 01-15-2022 Lymphocytes/100 WBC (Bld) 35.9 % 19-41 [facility] Work Phone: Blood monocytes/100 leukocyt eson 01-15-2022 Monocytes/100 WBC (Bld) 8.8 % 0-10 [facility] Work Phone: Blood platelet mean volumeon 01-15-2022 Platelet mean volume (Bld) [Entitic vol] 12.0 fL 6.2-12.0 [facility] Work Phone: Determination of erythrocyte mean corpuscular volume (MCV)on 01-15-2022 MCV (RBC) [Entitic vol] 88.8 fL 81-99 [facility] Work Phone: Hematocrit Auto (Bld) [Volum e fraction]on 01-15-2022 Hematocrit (Bld) [Volume fraction] 43.0 % 37-47 [facility] Work Phone: Ketones Test strip Ql (U)on 01-15-2022 Ketones Ql (U) Negative Negative [facility] Work Phone: Laboratory - Chemistry and C hemistry - challengeon 01-15-2022 ALP [Catalytic activity/Vol] 65 U/L 45-117 [facility] Work Phone: ALT [Catalytic activity/Vol] 39 U/L 13-56 [facility] Work Phone: [phone] CO2 [Moles/Vol] 26.0 mmol/L 21.0-32.0 [facility] Work Phone: [phone] Globulin (S) [Mass/Vol] 3.2 g/dL 2.2-4.2 [facility] Work Phone: [phone] Urea nitrogen/Creatinine [Mass ratio] 18.2 mg/mg 10-20 [facility] Work Phone: Laboratory - Hematology and Cell countson 01-15-2022 Erythrocyte distribution width (RBC) [Entitic vol] 40.7 fL 35.1-43.9 [facility] Work Phone: [phone] Erythrocyte distribution width (RBC) [Ratio] 12.4 % 11.6-14.6 [facility] Work Phone: Immature granulocytes/100 WBC (Bld) 0.400 % 0.0-0.9 [facility] Work Phone: Comment on above: IG% - Immature Granu locytes (promyelocytes, myelocytes and metamyelocytes) > 1% indicates that a LEFT SHIFT is Present. MCH (RBC) [Entitic mass] 28.5 pg 27.0-32.0 [facility] Work Phone: Nucleated RBC/100 WBC (Bld) [Ratio] 0 % 0-5 [facility] Work Phone: [phone] MCHC Auto (RBC) [Mass/Vol]on 01-15-2022 MCHC (RBC) [Mass/Vol] 32.1 g/dL 32-36 [facility] Work Phone: Mucus LM Ql (Urine sed)on Mucus Ql (Urine sed) 0 SEEN /hpf [facility] Work Phone: Nitrite Test strip Ql (U)on 01-15-2022 Nitrite Ql (U) Negative Negative [facility] Work Phone: No Panel Informationon 01-15 Estimated GFR (MDRD) Amer 90 mL/min >60 [facility] Work Phone: Comment on above: GFR Calc Estimated GFR (MDRD) Non-Af Amer 75 mL/min >60 [facility] Work Phone: Comment on above: Non- GFR Calc Platelets bldon 01-15-2022 Platelets (Bld) [#/Vol] 194 10*3/uL 150-450 [facility] Work Phone: Protein Test strip Ql (U)on 01-15-2022 Protein Ql (U) Negative Negative [facility] Work Phone: Serum or plasma albumin lilia urement (mass/volume)on 01-15-2022 Albumin [Mass/Vol] 4.1 g/dL 3.2-5.[address] [facility] Work Phone: Serum or plasma albumin/glob ulin mass ratioon 01-15-2022 Albumin/Globulin [Mass ratio] 1.3 {ratio} 0.9-2.4 [facility] Work Phone: Serum or plasma calcium lilia urement (mass/volume)on 01-15-2022 Calcium [Mass/Vol] 9.4 mg/dL 8.5-10.[address] [facility] Work Phone: Serum or plasma cholesterol in HDL measurement (mass/volume)on 01-15-2022 Cholesterol in HDL [Mass/Vol] 37 mg/dL >40 [facility] Work Phone: Comment on above: The drugs N-Acetylcy steine and Metamizole may falsely depress this assay. Reference Range HDL <40 mg/dL Low HDL Cholesterol HDL >or= 60 mg/dL High HDL Cholesterol Serum or plasma cholesterol in VLDL measurement (mass/volume)on 01-15-2022 Cholesterol in VLDL [Mass/Vol] 32 mg/dL 5-40 [facility] Work Phone: Serum or plasma creatinine m easurement (mass/volume)on 01-15-2022 Creatinine [Mass/Vol] 0.82 mg/dL 0.55-1.02 [facility] Work Phone: Comment on above: The validity of the calculated GFR & GFRAA in patients over 70 years has not been determined. Clinical correlation is essential. Serum or plasma low density lipoprotein (LDL) cholesterol measurement (mass/volume)on 01-15-2022 Cholesterol in LDL [Mass/Vol] 96 mg/dL 0-130 [facility] Work Phone: Serum or plasma urea nitroge n measurement (mass/volume)on 01-15-2022 Urea nitrogen [Mass/Vol] 15 mg/dL 7-18 [facility] Work Phone: Squamous epithelial cells de tection in urine sediment by light microscopyon 01-15-2022 Epithelial cells.squamous LM Ql (Urine sed) 0-5 SEEN /hpf 5-10 [facility] Work Phone: Thin prep Papanicolaou smear with manual screeningon 01-15-2022 Thin prep Papanicolaou smear with manual screening 21 U/L 15-37 [facility] Work Phone: Thin prep Papanicolaou smear with manual screening 7 5-15 [facility] Work Phone: Urine blood detectionon 12-30 RBC Ql (U) Negative Negative [facility] Work Phone: RBC Ql (U) 0 SEEN /hpf 0-5 [facility] Work Phone: Urine clarityon 01-15-2022 Clarity (U) Clear Clear [facility] Work Phone: Urine color determinationon 01-15-2022 Color (U) Yellow Yellow [facility] Work Phone: Urine glucose detectionon Glucose Ql (U) Normal mg/dl Normal [facility] Work Phone: Urine leukocyte esterase det ection by dipstickon 01-15-2022 Leukocyte esterase Test strip Ql (U) Negative Negative [facility] Work Phone: Urine pHon 01-15-2022 pH (U) 6.0 [pH] 5.0 - 8.0 [facility] Work Phone: Urine sediment bacteria coun t by microscopy (number/high power field)on 01-15-2022 Bacteria LM.HPF (Urine sed) [#/Area] 1 /[HPF] None Seen [facility] Work Phone: Urine specific gravity measu rementon 01-15-2022 Specific gravity (U) [Rel density] 1.020 1.002-1.030 [facility] Work Phone: Urobilinogen Auto test strip Ql (U)on 01-15-2022 Urobilinogen Ql (U) Normal mg/dl Normal [facility] Work Phone: Culture, urine Bacteria identified Cx Nom (U) Positive [facility] Work Phone: Vital Signs Date Time Vital Sign Value Performing Clinician Faci lity 12-25-2024 11:37-0400 Body height 162.[address] Arsh Llanos DO Work Phone: [facility] 12-25-2024 11:37-0400 Body mass index (BMI) [Ratio] 55.7 kg/m2 Dr. Arsh Llanos DO Work Phone: [facility] 12-25-2024 11:37-0400 Body temperature 97.1 [degF] Dr. Arsh Llanos DO Work Phone: [facility] 12-25-2024 11:37-0400 Body weight 147.[address] Arsh Llanos DO Work Phone: [facility] 12-25-2024 11:37-0400 Diastolic blood pressure 88 mm[Hg] Dr. Arsh Llanos DO Work Phone: [facility] 12-25-2024 11:37-0400 Heart rate 78 /min Dr. Arsh Llanos DO Work Phone: [facility] 12-25-2024 11:37-0400 Respiratory rate 16 /min Dr. Arsh Llanos DO Work Phone: [facility] 12-25-2024 11:37-0400 SaO2% (BldA) [Mass fraction] 97 % Dr. Arsh Llanos DO Work Phone: [facility] 12-25-2024 11:37-0400 Systolic blood pressure 138 mm[Hg] Dr. Arsh Llanos DO Work Phone: [facility] 09-27-2023 09:33-0500 Body height 162.[address] Arsh Llanos Work Phone: [facility] 09-27-2023 09:33-0500 Body mass index (BMI) [Ratio] 55.4 kg/m2 Dr. Arsh Llanos Work Phone: [facility] 09-27-2023 09:33-0500 Body temperature 97.1 [degF] Dr. Arsh Llanos Work Phone: [facility] 09-27-2023 09:33-0500 Body weight 146.[address] Arsh Llanos Work Phone: [facility] 09-27-2023 09:33-0500 Diastolic blood pressure 70 mm[Hg] Dr. Arsh Llanos Work Phone: [facility] 09-27-2023 09:33-0500 Heart rate 68 /min Dr. Arsh Llanos Work Phone: [facility] 09-27-2023 09:33-0500 Respiratory rate 16 /min Dr. Arsh Llanos Work Phone: [facility] 09-27-2023 09:33-0500 SaO2% (BldA) [Mass fraction] 97 % Dr. Arsh Llanos Work Phone: [facility] 09-27-2023 09:33-0500 Systolic blood pressure 124 mm[Hg] Dr. Arsh Llanos Work Phone: [facility] 09-06-2023 15:23-0500 Body mass index (BMI) [Ratio] 55.9 kg/m2 Dr. Arsh Llanos Work Phone: [facility] 09-06-2023 15:23-0500 Body temperature 98.6 [degF] Dr. Arsh Llanos Work Phone: [facility] 09-06-2023 15:23-0500 Body weight 147.[address] Arsh Llanos Work Phone: [facility] 09-06-2023 15:23-0500 Diastolic blood pressure 94 mm[Hg] Dr. Arsh Llanos Work Phone: [facility] 09-06-2023 15:23-0500 Heart rate 72 /min Dr. Arsh Llanos Work Phone: [facility] 09-06-2023 15:23-0500 Respiratory rate 16 /min Dr. Arsh Llanos Work Phone: [facility] 09-06-2023 15:23-0500 SaO2% (BldA) [Mass fraction] 98 % Dr. Arsh Llanos Work Phone: [facility] 09-06-2023 15:23-0500 Systolic blood pressure 130 mm[Hg] Dr. Arsh Llanos Work Phone: [facility] 06-16-2023 11:27-0500 Body height 162.[address] Arsh Llanos Work Phone: [facility] 06-16-2023 11:27-0500 Body mass index (BMI) [Ratio] 54.6 kg/m2 Dr. Arsh Llanos Work Phone: [facility] 06-16-2023 11:27-0500 Body temperature 97.5 [degF] Dr. Arsh Llanos Work Phone: [facility] 06-16-2023 11:27-0500 Body weight 144.[address] Arsh Llanos Work Phone: [facility] 06-16-2023 11:27-0500 Diastolic blood pressure 88 mm[Hg] Dr. Arsh Llanos Work Phone: [facility] 06-16-2023 11:27-0500 Heart rate 67 /min Dr. Arsh Llanos Work Phone: [facility] 06-16-2023 11:27-0500 Respiratory rate 16 /min Dr. Arsh Llanos Work Phone: [facility] 06-16-2023 11:27-0500 SaO2% (BldA) [Mass fraction] 97 % Dr. Arsh Llanos Work Phone: [facility] 06-16-2023 11:27-0500 Systolic blood pressure 128 mm[Hg] Dr. Arsh Llanos Work Phone: [facility] 04-19-2022 09:42-0400 Diastolic blood pressure 90 mm[Hg] Dr. Arsh Llanos Work Phone: [facility] Work Phone: 04-19-2022 09:42-0400 Systolic blood pressure 130 mm[Hg] Dr. Arsh Llanos Work Phone: [facility] Work Phone: 04-19-2022 09:26-0400 Body height 162.[address] Arsh Llanos Work Phone: [facility] Work Phone: 04-19-2022 09:26-0400 Body mass index (BMI) [Ratio] 53.5 kg/m2 Dr. Arsh Llanos Work Phone: [facility] Work Phone: 04-19-2022 09:26-0400 Body temperature 96.2 [degF] Dr. Arsh Llanos Work Phone: [facility] Work Phone: 04-19-2022 09:26-0400 Body weight 141.[address] Arsh Llanos Work Phone: [facility] Work Phone: 04-19-2022 09:26-0400 Heart rate 68 /min Dr. Arsh Llanos Work Phone: [facility] Work Phone: 04-19-2022 09:26-0400 Respiratory rate 16 /min Dr. Arsh Llanos Work Phone: [facility] Work Phone: 04-19-2022 09:26-0400 SaO2% (BldA) [Mass fraction] 98 % Dr. Arsh Llanos Work Phone: [facility] Work Phone: 02-15-2022 15:00-0400 Body mass index (BMI) [Ratio] 52.5 kg/m2 Dr. Arsh Llanos Work Phone: [facility] Work Phone: 02-15-2022 15:00-0400 Body temperature 98.3 [degF] Dr. Arsh Llanos Work Phone: [facility] Work Phone: 02-15-2022 15:00-0400 Body weight 138.[address] Arsh Llanos Work Phone: [facility] Work Phone: 02-15-2022 15:00-0400 Diastolic blood pressure 88 mm[Hg] Dr. Arsh Llanos Work Phone: [facility] Work Phone: 02-15-2022 15:00-0400 Heart rate 82 /min Dr. Arsh Llanos Work Phone: [facility] Work Phone: 02-15-2022 15:00-0400 Respiratory rate 16 /min Dr. Arsh Llanos Work Phone: [facility] Work Phone: 02-15-2022 15:00-0400 SaO2% (BldA) [Mass fraction] 96 % Dr. Arsh Llanos Work Phone: [facility] Work Phone: 02-15-2022 15:00-0400 Systolic blood pressure 140 mm[Hg] Dr. Arsh Llanos Work Phone: [facility] Work Phone: 01-15-2022 14:25-0400 Body height 162.[address] Arsh Llanos Work Phone: [facility] Work Phone: 01-15-2022 14:25-0400 Body mass index (BMI) [Ratio] 52.2 kg/m2 Dr. Arsh Llanos Work Phone: [facility] Work Phone: 01-15-2022 14:25-0400 Body temperature 97.2 [degF] Dr. Arsh Llanos Work Phone: [facility] Work Phone: 01-15-2022 14:25-0400 Body weight 138.[address] Arsh Llanos Work Phone: [facility] Work Phone: 01-15-2022 14:25-0400 Diastolic blood pressure 86 mm[Hg] Dr. Arsh Llanos Work Phone: [facility] Work Phone: 01-15-2022 14:25-0400 Heart rate 62 /min Dr. Arsh Llanos Work Phone: [facility] Work Phone: 01-15-2022 14:25-0400 Respiratory rate 16 /min Dr. Arsh Llanos Work Phone: [facility] Work Phone: 01-15-2022 14:25-0400 SaO2% (BldA) [Mass fraction] 97 % Dr. Arsh Llanos Work Phone: [facility] Work Phone: 01-15-2022 14:25040 Systolic blood pressure 144 mm[Hg] Dr. Arsh Llanos Work Phone: [facility] Work Phone: Encounters Encounter Date Encounter Type Care Provider Facility Start: 01-01-2025 End: 01-01-[address] Arsh Llanos DO Work Phone: [facility] Work Phone: Start: 01-01-2025 End: 01-01-[address] Arsh Anderson DO -[facility]patient [facility] Work Phone: Start: 01-01-2025 End: 01-01-2025 ambulatory Arhs Llanos Facility:[facility] Start: 12-25-2024 End: 12-25-[address] Arsh Anderson DO -[facility] Work Phone: Start: 12-25-2024 End: 12-25-[address] Arsh Llanos DO Work Phone: [facility] Work Phone: Start: 2024 ambulatory Arsh Gómez y:[facility] Start: 04-12-2024 End: 04-12-2024 ambulatory Shira Sanchez PA Facility:[facility] Start: 03-28-2024 End: 03-28-2024 ambulatory Shirarupal Sanchez PA Facility:[facility] Start: 03-21-2024 End: 03-21-2024 ambulatory Shirarupal Sanchez PA Facility:[facility] Start: 03-20-2024 End: 03-21-2024 ambulatory Shirarupal Sanchez PA Facility:[facility] Start: 03-17-2024 End: 03-17-2024 Emergency department patient visit Arsh Llanos Facility:[facility] Start: 03-17-2024 End: 03-17-2024 ambulatory Arsh Llanos Facility:[facility] Start: 03-13-2024 End: 03-13-2024 ambulatory Arsh Llanos [place] [place]: 03-13-2024 End: 03-13-2024 ambulatory Arsh Llanos Facility:[facility] Start: 09-27-2023 End: 09-27-[address] Arsh Llanos Work Phone: [facility] Work Phone: Start: 09-27-2023 End: 09-27-[address] Arsh Llanos Work Phone: [facility] Work Phone: Start: 09-27-2023 End: 09-27-[address] Arsh Llanos Work Phone: [facility] Work Phone: Start: 09-06-2023 End: 09-06-[address] Arsh Llanos Work Phone: [facility] Work Phone: Start: 06-21-2023 End: 06-21-[address] Arsh Llanos Work Phone: [facility] Work Phone: Start: 06-21-2023 End: 06-21-[address] Arsh Llanos Work Phone: [facility]-Outpatient Breast Imaging Work Phone: Start: 06-16-2023 End: 06-16-[address] Arsh Llanos Work Phone: [facility] Work Phone: Start: 06-16-2023 End: 06-16-[address] Arsh Llanos Work Phone: [facility] Work Phone: Start: 04-29-2022 End: 04-29-[address] Arsh Llanos Work Phone: [facility] Work Phone: Start: 04-29-2022 End: 04-29-[address] Arsh Llanos Work Phone: [facility]-Outpatient Breast Imaging Start: 04-19-2022 End: 04-19-[address] Arsh Llanos Work Phone: [facility] Start: 02-15-2022 End: 02-15-[address] Arsh Llanos Work Phone: [facility] Start: 01-26-2022 End: 01-26-[address] Arsh Llanos Work Phone: [facility] Start: 01-15-2022 End: 01-15-[address] Arsh Llanos Work Phone: [facility] Procedures Date Procedure Procedure Detail Performing Clinician Start: 01-01-2025 Screening mammography Heather Llanos DO Work Phone: Start: 09-27-2023 Plain X-ray of shoulder Dr. Arsh Llanos Work Phone: Start: 06-21-2023 Screening mammography Heather Llanos Work Phone: Start: 06-16-2023 Radiologic examinati on of knee Dr. Arsh Llanos Work Phone: Start: 04-29-2022 Bilateral mammography Heather Llanos Work Phone: Start: 04-29-[address] Arsh Llanos Work Phone: Start: 01-26-2022 CT of abdomen and pe lvis without contrast Dr. Arsh Llanos Work Phone: Urine culture Dr. Arsh kelley Work Phone: Plan of Treatment Date Care Activity Detail Author Start: 02-15-2025 ambulatory Ambulatory Facility:[facility] Start: 12-25-2024 Patient referral [facility] Work Phone: Start: 09-27-2023 Patient referral [facility] Work Phone: Start: 06-21-2023 MG Breast - bilateral Screening [facility] Start: 06-21-2023 Screening mammography SCRN MAMM (CAD)W/ALAN BILAT [facility] Start: 04-29-2022 Digital breast tomosynthesis bilateral BREAST TOMOSYNTHESIS BI [facility] Work Phone: Basic metabolic 2008 panel with ionized calcium - Serum or Plasma [facility] CT Abdomen and Pelvi s contrast [facility] Work Phone: MG Breast - bilatera l Screening [facility] MG Breast - bilatera l Screening [facility] Patient referral [facility] Work Phone: Immunizations Immunization Date Immunization Notes Care Provider Fa [facility] 05-26-2021 influenza, injectabl e, quadrivalent, preservative free Dr. Arsh Llanos Work Phone: [facility] 05-26-2021 influenza, seasonal, injectable Dr. Arsh Llanos Work Phone: [facility] Work Phone: Payers Date Payer Category Payer Medicare [id number] 2024 Unknown [id number] 2024 Unknown [id number] 2024 Self-pay [id number] 2024 Unknown [id number] 2014 Unknown [id number] Medicare MEDICARE PART A B [id number] Unknown [id number] Unknown [id number] 2.16.8 [id number] Unknown [id number] 2.16.8 [id number] Unknown [id number] 2.16.8 [id number] Unknown [id number] 2.16.8 [id number] Unknown [id number] 2.16.8 [id number] Unknown [id number] 2.16.8 [id number] Unknown [id number] 2.16.8 [id number] Unknown [id number] 2.16.8 [id number] Unknown [id number] 2.16.8 [id number] Unknown [id number] 2.16.8 [id number] Unknown [id number] 2.16.8 [id number] Unknown [id number] 2.16.8 [id number] Unknown [id number] 2.16.8 [id number] Social History Date Type Detail Facility Start: 01-15-2022 End: 09-27-2023 Tobacco smoking status NHIS Unknown if ever smoked [facility] Start: 1960 Sex Assigned At Female [facility] Start: 03-17-2024 Tobacco smoking stat us IDIS Ex-smoker (finding) [facility] Evaluation note 12-25-2024 Note Date & Type Note Facility 12-25-2024 Evaluation note Diagnosis Onset Date Resolution Eczema acute December 25, 2024 11:28am Encounter for screening colonoscopy acute December 25, 2024 11:28am Hypokalemia acute December 25 11:28am Knee pain, left acute December 25, 2024 11:28am Skin breakdown acute December 25, 2024 11:28am Hypertension chronic December 25 11:28am [facility] Work Phone: Progress note 12-25-2024 Note Date & Type Note Facility 12-25-2024 Progress note [facility] Progress note 12-25-2024 Note Date & Type Note Facility 12-25-2024 Progress note Note Date/Time December 25, 2024 12:19pm [facility] [address] [place] [address] [place] [address] OFFICE VISIT Date of Service: 12/25/24 MR#: [id number] Acct: [id number] Name: ALCIDES STEELE Rep #: [id number] : 1960 Provider: Dr. Francisco Llanos DO Age/Sex: 64/F [place] [facility] Status: Signed Intake Vital Signs 03/20/24 11:19 12/25/24 11:37 Height 5 ft 4 in 5 ft 4 in Weight: 325 lb BMI 55.7 BP 138/88 H Blood Pressure Location Rt brachial Position Sitting Respiration 16 Pulse 78 Pulse Source Monitor Temp 97.1 F L Temp Source Temporal Pulse Oximetry (%) 97 Oxygen Delivery Method room air Intake Visit Reasons: MED FU Chief Complaint: med fu 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 Accompanied by: Self Is patient in pain?: No Allergies aspirin Allergy (Severe, Verified 12/25/24 11:35) Stomach pain cephalexin Allergy (Mild, Verified 12/25/24 11:35) rash sulfamethoxazole (From Bactrim) Allergy (Mild, Verified 12/25/24 11:35) Rash trimethoprim (From Bactrim) Allergy (Mild, Verified 12/25/24 11:35) Rash Medications ?Medication ?Instructions ?Recorded ?Confirmed ?Type blood pressure kit-extra large #1 ea 04/19/22 04/12/24 Rx clotrimazole 1 % topical cream 1 applic topical BID #3 0 grams 12/25/24 12/25/24 Rx hydrochlorothiazide 12.5 mg tablet 12.5 mg PO DAILY #9 0 tabs 12/25/24 12/25/24 Rx lisinopril 20 mg tablet 20 mg PO DAILY #90 TABLETS 0 12/25/24 12/25/24 Rx triamcinolone acetonide 0.1 % 1 applic topical QDAY #3 0 grams 12/25/24 12/25/24 Rx topical cream Have you fallen in the past year?: No Nurse's Note: colonoscopy and mammogram needed [facility] Medical History Hemorrhoids Stomach ulcer Kidney stones Hives Chronic headaches Arthritis Surgical History History of hysterectomy History of left knee surgery Family History Mother CVA (cerebral vascular accident) Heart disease Father Heart disease Social History Smoking Status: Former smoker alcohol intake: never substance use type: does not use frequency: 3-4 times per week HPI HPI Chief Complaint: med fu Details: ALCIDES STEELE, is a 64 F who presents to the office today for a checkup exam. She needs multiple refills and has questions about itchy ears, swelling of her lowerlegs, taking medicines for lymphedema, scheduling on mammogram and a colonoscopy, and concerns about weight loss. ROS Const Constitutional: No body ache, excessive sweating, fatigue, fever(s), frequent falls, headache(s), snoring, weakness, weight change, sleep problems or change in appetite Eyes Eyes: No blurry vision, change in vision, eye pain or Light sensitivity ENT ENT: No abnormal hearing, ear or mastoid pain, tinnitus, nasal congestion, headache(s), neck pain or sore throat Resp Respiratory: No cough, shortness of breath, snoring or wheezing Cardio Cardiology: No chest pain at rest, chest pain with exertion, excessive sweating,shortness of breath, dyspnea on exertion, lightheadedness, orthopnea or palpitations Gastro GI: No abdominal pain, change in bowel habits, constipation, cramping, diarrhea,nausea/dyspepsia or vomiting Genitourinary-Female: No burning urination, painful urination, urinary incontinence, urinary frequency, blood in urine, abnormal periods or pelvic pain Musc Musculoskeletal: No abnormal gait, joint pain, back pain, limited range of motion, neck pain, numbness, stiffness, tingling or Arthritis Skin Skin: No dry skin, redness, lesions, itchy eyes, rash or wounds Neuro Neurology: No abnormal gait, abnormal hearing, abnormal speech, dizziness, weakness, frequent falls, headache(s), memory loss, numbness or tingling Psych Psychiatric: No anxiety, No change in appetite, No depression, No memory loss and No Thoughts of harming yourself/Others Endo Endocrine: No cold intolerance, excessive sweating, fatigue, flushing, heat intolerance, increased thirst/drinking, increased hunger or weight change Aller/Imm Allergy/Immunologic: No itchy eyes, seasonal allergy symptoms, hives or wheezing Juan/Lymp Hematologic/Lymphatic: No easy bleeding, easy bruising or enlarged lymph nodes Exam Const General: cooperative Nutritional Appearance: obese morbidly obese Orientation: oriented x3 HENMT Head: normal to inspection Ears: hearing grossly normal bilaterally Nose: external nose normal Mouth: oral mucosae normal Teeth and gingiva: dentition normal Eyes General: appearance normal, both eyes and all related structures Neck Neck: normal visual inspection Thyroid: thyroid normal Chest Chest palpation & inspection: normal inspection of the chest Resp Effort & Inspection: normal respiratory effort Auscultation: Bilateral: Clear to Auscultation Cardio Rate: regular rate Rhythm: regular rhythm Musc Musculoskeletal: No joint tenderness Skin Rashes: rashes noted (Eczematous rash on hands. Intertriginous rash under breasts) Neuro General: moves all extremities Speech: speech normal Gait: normal gait Motor: muscle tone normal throughout Extrem General: normal to inspection and no edema Psych Appearance: grossly normal Mental Status: mental status grossly normal Coding Level of Care Code Off vis,est,level 4 Diagnoses Encounter for screening colonoscopy Z12.11 Hypokalemia E87.6 Primary hypertension I10 Hypertension type: primary hypertension Skin breakdown R23.8 Eczema, unspecified type L30.9 Eczema type: unspecified Chronic pain of left knee M25.562; G89.29 Chronicity: chronic Assessment and Plan Assessment and Plan (1) Encounter for screening colonoscopy: Status: Acute Plan: Patient has never had a colonoscopy. She has had rectal bleeding ever since shehad the cyst in the sacral area and I think it is very important to rule out anypathology in the colon. (2) Hypokalemia: Status: Acute Plan: I will repeat her blood work to see if she is still low on potassium as she has stopped her potassium supplement. (3) Hypertension: Status: Chronic Qualifiers: Hypertension type: primary hypertension Qualified Code(s): I10 - Essential (primary) hypertension Plan: Her blood pressure is fairly well-controlled. (4) Skin breakdown: Status: Acute Plan: She has a mild intertriginous rash under her breasts and an antifungal cream wasprescribed. (5) Eczema: Status: Acute Qualifiers: Eczema type: unspecified Qualified Code(s): L30.9 - Dermatitis, unspecified Plan: She has some eczematous patches on her left hand and topical hydrocortisone was prescribed. (6) Knee pain, left: Status: Acute Qualifiers: Chronicity: chronic Qualified Code(s): M25.562 - Pain in left knee; G89.29 - Other chronic pain Plan: She has some knee pain but it 325 pounds there is really nothing I can do other than recommend weight loss and [id number]-jet-[id number] nonsteroidals. Orders: Orders SCRN MAMM (CAD)W/ALAN BILAT Today Basic Metabolic Profile (BMP) Today E87.6 - Hypokalemia Referrals General Surgery Z12.11 - Encounter for screening for malignant neoplasm of colon Medications: New clotrimazole 1% 1 applic topical BID 30 grams 1RF triamcinolone acetonide 0.1% Use on hands 1 applic topical QDAY 30 grams 1RF Refilled hydrochlorothiazide 12.5 mg PO DAILY 90 tabs 3RF lisinopril 20 mg PO DAILY 90 TABLETS 1RF Plan Details Follow Up: 1 Year Clinical Quality Measures Falls Risk Screening/Assistive Devices Have you fallen in the past year?: No 12/25/24 1219 <Electronically signed by Arsh walter DO> Date _ Arsh Llanos DO Cosigner Signature: Date (if applicable) CC: ~ [facility] [employer] Work Phone: Evaluation note Note Date & Type Note Facility Evaluation note No assessment information availa ble [facility] Work Phone: Evaluation note Note Date & Type Note Facility Evaluation note Diagnosis Onset Date Kidney stones acute Kidney stones acute Umbilical hernia noneactive Hiatal hernia noneactive Elevated blood pressure read ing in office without diagnosis of hypertension noneac tive Left breast lump noneactive [facility] Work Phone: Evaluation note Note Date & Type Note Facility Evaluation note Diagnosis Onset Date Eczema acute Knee pain, left acute Obesity (BMI 30-39.9) acute Hypertension chronic [facility] Work Phone: Evaluation note Note Date & Type Note Facility Evaluation note Diagnosis Onset Date Eczema acute Knee pain, left acute Obesity (BMI 30-39.9) acute Hypertension chronic BPPV (benign paroxysmal positional vertigo) acute Gastritis acute BPPV (benign paroxysmal positional vertigo) acute Knee pain, left acute Neck pain acute Shoulder pain acute [facility] Work Phone: Evaluation note Note Date & Type Note Facility Evaluation note Diagnosis Onset Date Resolution Eczema acute December 25, 2024 11:28am Encounter for screening colonoscopy acute December 25, 2024 11:28am Hypokalemia acute December 25 11:28am Knee pain, left acute December 25, 2024 11:28am Skin breakdown acute December 25, 2024 11:28am Hypertension chronic December 25 11:28am [facility] Work Phone: Hospital Discharge instructions Note Date & Type Note Facility Hospital Discharge instructions Ambulatory OrdersGeneral Surgery Location: None Selected [facility] Work Phone: Chief Complaint and Reason for Visit Chief Complaint Admit Date MED FU December 25, 2024 11:28 am screen January 01, 2025 3:01p m Reason for Visit Admit Date Eczema December 25, 2024 11:28 am Encounter for screening colonoscopy December 25, 2024 11:28am Hypokalemia December 25, 2024 11:28 am Knee pain, left May 27th, 2025 11:28 am Skin breakdown December 25, 2024 11:28 am Hypertension December 25, 2024 11:28 am Chief Complaint SEVERE PAIN Chief Complaint SEVERE PAIN LEFT FLANK PAIN 1 M FU lump on breast/wants mamm LEFT BREAST LUMP Reason for Visit Kidney stones Kidney stones Umbilical hernia Hiatal hernia Elevated blood pressure reading in office without diagnosis of hypertension Left breast lump Chief Complaint 1 Y FU Reason for Visit Eczema Knee pain, left Obesity (BMI 30-39.9) Hypertension Chief Complaint 1 Y FU SCREENING Reason for Visit Eczema Knee pain, left Obesity (BMI 30-39.9) Hypertension Chief Complaint 1 Y FU SCREENING ACUTE CONCERNS DIZZINESS/EARS CLOGGED Reason for Visit Eczema Knee pain, left Obesity (BMI 30-39.9) Hypertension BPPV (benign paroxysmal positional vertigo) Gastritis BPPV (benign paroxysmal positional vertigo) Knee pain, left Neck pain Shoulder pain Chief Complaint Admit Date MED FU December 25, 2024 11:28 am Family History No Family History Records Found Relationship Condition Age at Onset Recorded Date/T hakan mother Cerebrovascular accident (CVA) Unknown Cardiac disease Unknown father Cardiac disease Unknown Summary Purpose Advance Directives No Advanced Directives Records Found Additional Source Comments Goals (unrecognized section and content) Goals may be documented in a n alternate sectionGoals may be documented in an alternate sectionGoals may be documented in an alternate sectionGoals may be documented in an alternate sectionGoals may be documented in an alternate sectionGoals may be documented in an alternate sectionGoals may be documented in an alternate section Care Teams (unrecognized sec tion and content) Team Status: Active Member Role Status Dates Dr. Arsh Llanos DO Family Provider Active Dr. Arsh Llanos DO Primary Care Provider Active Team Status: Inactive Member Role Status Dates Dr. Arsh Llanos DO Primary Care Pr ovider, Attending Provider, Referring Provider Active Team Status: Inactive Member Role Status Dates Dr. Arsh Llanos DO Primary Care Provider, Referr ing Provider Active RANDY Elizalde Attending Provider Active Team Status: Inactive Member Role Status Dates Dr. Arsh Llanos , DO Primary Care Provider Active RANDY Elizalde Attending Provider, Referring Pro vider Active Team Status: Inactive Member Role Status Dates Dr. Arsh Llanos DO Primary Care Provider Active Start: December 25, 2024 End: December 25, 2024 Dr. Arsh R Brown , DO Attending Provider Active Start: December 25, 2024 End: December 25, 2024 Dr. Arsh Llanos DO Referring Provider Active Start: December 25, 2024 End: December 25, 2024 Team Status: Active Member Role Status Dates Dr. Arsh Llanos DO Primary Care Provider Active Team Status: Inactive Member Role Status Dates Dr. Arsh Llanos DO Primary Care Provider Active Start: January 01, 2025 End: January 01, 2025 Dr. Arsh Llanos DO Attending Provider Active Start: January 01, 2025 End: January 01, 2025 Dr. Arsh Llanos DO Referring Provider Active Start: January 01, 2025 End: January 01, 2025 INFORMATION SOURCE (unrecogn ized section and content) DATE CREATED AUTHOR 02/08/2025 [facility] FOR RECORDS PERTAINING TO PATIENTS WHO ARE OR HAVE BEEN ENROLLED IN A CHEMICAL DEPENDENCY/SUBSTANCEABUSE PROGRAM, SOME INFORMATION MAY BE OMITTED. This clinical summary was aggregated from multiple sources. Caution should be exercised in using it in the provision of clinical care. This summary normalizes information from multiple sources, and as a consequence, information in this document may materially change the coding, format and clinical context of patient data. In addition, data may be omitted in some cases. CLINICAL DECISIONS SHOULD BE BASED ON THE PRIMARY CLINICAL RECORDS. [employer] provides no warranty or guarantee of the accuracy or completeness of information in this document.
[2025-02-15] MEDS: Lactated Ringers 1,000 ML 15 ML IV (07:13)
--- NOTE | 2025-02-15 07:27 | PCM.PRE.AN2 ---
ASA Classification* ASA Classification ASA Classification: 3 Assessment & Plan Anesthesia* Anesthesia Assessment Anesthesia Assessment: Discussed sedation and/or anesthesia options, risks, benefits, and alternatives with patient/parents/legal guardian/POA. Questions invited. The patient/parents/legal guardian/POA seems to understand and agrees to proceed with anesthesia plan. Reviewed the physical assessment, medical history, allergy history and patient home medications list prior to surgery/procedure/anesthetic and documented any changes. Performed airway and anesthesia risk assessments. Anesthesia Type Anesthesia Type: MAC History Source History Obtained from:: Patient and Chart Anesthesia Focused Assessment* Temperature: 96.8 F Pulse Rate: 68 Blood Pressure: 158/79 Respiratory Rate: 18 Pulse Ox: 98 Oxygen Delivery Method: Room Air Airway Assessment Mouth opens: >3 cm Mallampati Score: IV Teeth Condition: Missing (Patient is missing several teeth. Rest are tight.) Neck Range of motion (ROM): Limited ROM (Somewhat Decreased) Labs Anesthesia Preop lab: CBC WBC 7.5 K/mm3 (4.4-11.0) 01/15/22 15:14 01/15/22 RBC 4.84 M/mm3 (4.2-5.4) 01/15/22 15:14 01/15/22 Hgb 13.8 g/dL (12.0-15.0) 01/15/22 15:14 01/15/22 Hct 43.0 % (37-47) 01/15/22 15:14 01/15/22 Plt Count 194 K/mm3 (150-450) 01/15/22 15:14 01/15/22 CHEMISTRY Potassium 3.4 mmol/L (3.5-5.1) L 03/13/24 15:14 03/13/24 Sodium 136 mmol/L (136-145) 03/13/24 15:14 03/13/24 BUN 14 mg/dL (7-18) 03/13/24 15:14 03/13/24 Creatinine 0.95 mg/dL (0.55-1.02) 03/13/24 15:14 03/13/24 Glucose 87 mg/dL (74-106) 03/13/24 15:14 03/13/24 COAG Pre-Assessment Diagnosis/Proposed Procedure Planned Operative Procedure(s): COLONOSCOPY Anesthesia History Anesthesia History - consumer services advisor: Anesthesia History - consumer services advisor Hx Hospitalization No 02/13/25 13:12 Any Problems With Anesthesia No 02/13/25 13:12 Cholinesterase deficiency No 02/13/25 13:12 You/Your Family Experience No 02/13/25 13:12 fever (hyperthermia) with Relationship Recent Exposure to Contagious No 02/15/25 07:11 Disease Does patient have nerve No 02/13/25 13:12 stimulator Patient instructed to have device shut off --Does patient have Pacemaker No 02/15/25 07:11 or ICD? When Was Last Pacemaker Check QUESTION #4 FULL TEXT: You/Your Family Experience fever (hyperthermia) with Anesthesia Last Oral Intake Last Oral intake: Last Oral Intake NPO since 04:15 02/15/25 07:11 Meds taken in AM with sips of No 02/15/25 07:11 water? Meds patient instructed to take am of surgery Any additional information?: Yes NPO since: 04:15 (Patient finished prep at 4:15 AM.) PONV PONV - consumer services advisor: PONV - consumer services advisor Female Yes 02/13/25 13:12 HX of Motion Sickness No 02/13/25 13:12 HX of N/V After Surgery No 02/13/25 13:12 Non-Smoker Yes 02/13/25 13:12 Duration of Surgery greater No 02/13/25 13:12 than 60 minutes Number of Risk Factors 2 02/13/25 13:12 PONV Score Moderate Risk 02/13/25 13:12 Height & Weight Height & Weight: Anesthesia: Height & Weight Height 5 ft 4 in 02/15/25 07:11 Weight: 143.2 kg 02/15/25 07:11 Body Mass Index (BMI) 54.1 02/15/25 07:11 Respiratory Assessment Respiratory Assessment - consumer services advisor: Respiratory Tract Infection Hx - consumer services advisor Hx Respiratory Tract Infection No 02/13/25 13:12 STOP Sleep Apnea STOP Sleep Apnea - consumer services advisor: STOP Sleep Apnea - consumer services advisor Hx Hypertension Yes 02/13/25 13:12 Hx Sleep Apnea No 02/13/25 13:12 CPAP BIPAP Do you snore loudly (louder No 02/13/25 13:12 than talking or can be heard Do you often feel tired/ No 02/13/25 13:12 fatigued/ sleepy during daytime? Has anyone observed you stop No 02/13/25 13:12 breathing during sleep? STOP Results Negative 02/13/25 13:12 QUESTION #5 FULL TEXT : Do you snore loudly (louder than talking or can be heard through closed doors)? Tobacco Use History Tobacco Use History - consumer services advisor: Tobacco Use History - consumer services advisor Tobacco Use Smoking Status Former smoker 02/13/25 13:12 Hx Tobacco Use No 02/13/25 13:12 Years Smoking Packs Smoked per Day Smoking Cessation Date was No - quit smoking greater 02/13/25 13:12 within the last 15 years than 15 years ago Hx Smoking Cessation Date 08/01/03 02/13/25 13:12 Hx Smoking Cessation Counseling Hematologic Medial History Hematologic Hx - consumer services advisor: Hematologic Medical Hx - sole layer hand Hx of Blood Transfusion No 02/13/25 13:12 Hx of Transfusion in last 3 No 02/13/25 13:12 Months Date of Last Transfusion (if within last 3 months) Ever experience any problems No 02/13/25 13:12 with transfusion(s)? Specify any problems Hx of Preganancy in last 3 No 02/13/25 13:12 Months Nurse Filling Out Transfusion VLEHMAN 02/13/25 13:12 & Questions: Date: 02/13/25 02/13/25 13:12 Time: 13:20 02/13/25 13:12 Patient unable to answer at this time (ie. confused, unrespo /Reproduction History /Reproductive History - consumer services advisor: /Reproductive Hx- consumer services advisor Hx Now No 02/13/25 13:12 Gestational Age (in weeks): EDC: Hx Hx Para Hx Section SAB No 02/13/25 13:12 Active Medications Active Medications: Current Medications Generic Name Dose Route Start Last Admin Trade Name Freq PRN Reason Stop Dose Admin Lactated Ringer's 1,000 mls @ 15 mls/hr 02/15/25 07:00 02/15/25 07:13 IV 15 mls/hr .Q48H SEGUN Administration PFSH Medical History Wears contact lenses Wears glasses History of ulceration Former smoker History of edema Hemorrhoids Stomach ulcer Kidney stones Hives Chronic headaches Arthritis Home Medications ?Medication ?Instructions ?Recorded ?Last Taken ?Type blood pressure kit-extra large #1 ea 04/19/22 Unknown Rx clotrimazole 1 % topical cream 1 applic topical BID #30 grams 12/25/24 Unknown Rx hydrochlorothiazide 12.5 mg tablet 12.5 mg PO DAILY #90 tabs 12/25/24 Unknown Rx lisinopril 20 mg tablet 20 mg PO DAILY #90 TABLETS 12/25/24 Unknown Rx triamcinolone acetonide 0.1 % 1 applic topical QDAY #30 grams 12/25/24 Unknown Rx topical cream Allergy/AdvReac Type Severity Reaction Status Date / Time aspirin Allergy Severe Stomach Verified 02/15/25 07:10 pain cephalexin Allergy Mild rash Verified 02/15/25 07:10 sulfamethoxazole (From Allergy Mild Rash Verified 02/15/25 07:10 Bactrim) trimethoprim (From Bactrim) Allergy Mild Rash Verified 02/15/25 07:10 Family History Mother CVA (cerebral vascular accident) Heart disease Father Heart disease Surgical History History of cardiac catheterization History of hysterectomy History of left knee surgery Social History Smoking Status: Former smoker alcohol intake: never substance use type: does not use frequency: 3-4 times per week Review of Systems (Anesthesia) ROS Narrative System reviewed and no additional complaints, except as documented.
--- NOTE | 2025-02-15 07:51 | H&P.OPEN ---
HPI - General General Date of Service: 02/15/25 Chief Complaint: Open access screening colonoscopy HPI Narrative ALCIDES STEELE, is a 64 F who presents for screening colonoscopy. She confirms her preappointment questionnaire that she has not experienced any change in her bowel habits-apart from a isolated experience where she noted some bright red blood per rectum approximately 3 months ago. She states this was most consistent with a history of hemorrhoids which she has experienced in episodic fashion for many years. Additionally she recounts that she was diagnosed with a perirectal abscess a year ago that was I&D in the emergency department and further managed by LEODAN Solitario of the general surgery outpatient clinic. She denies any previous colonoscopy exams but states she previously did make use of Cologuard and always had negative results. She also shares she is unaware of any family history of GI illness to include diverticulitis, inflammatory bowel disease, or colon cancer apart from a vague history about her sister requiring more frequent surveillance colonoscopies. Lastly she confirms that her prep was completed successfully and that her output is now clear. FORMERLY [facility], [facility]1983 Medical History Wears contact lenses Wears glasses History of ulceration Former smoker History of edema Hemorrhoids Stomach ulcer Kidney stones Hives Chronic headaches Arthritis Home Medications ?Medication ?Instructions ?Recorded ?Last Taken ?Type blood pressure kit-extra large #1 ea 04/19/22 Unknown Rx clotrimazole 1 % topical cream 1 applic topical BID #30 grams 12/25/24 Unknown Rx hydrochlorothiazide 12.5 mg tablet 12.5 mg PO DAILY #90 tabs 12/25/24 Unknown Rx lisinopril 20 mg tablet 20 mg PO DAILY #90 TABLETS 12/25/24 Unknown Rx triamcinolone acetonide 0.1 % 1 applic topical QDAY #30 grams 12/25/24 Unknown Rx topical cream Allergy/AdvReac Type Severity Reaction Status Date / Time aspirin Allergy Severe Stomach Verified 02/15/25 07:10 pain cephalexin Allergy Mild rash Verified 02/15/25 07:10 sulfamethoxazole (From Allergy Mild Rash Verified 02/15/25 07:10 Bactrim) trimethoprim (From Bactrim) Allergy Mild Rash Verified 02/15/25 07:10 Family History Mother CVA (cerebral vascular accident) Heart disease Father Heart disease Surgical History History of cardiac catheterization History of hysterectomy History of left knee surgery Social History Smoking Status: Former smoker alcohol intake: never substance use type: does not use frequency: 3-4 times per week Past Medical/Surgical History Planned Operation Planned Operative Procedure(s): COLONOSCOPY Previous Hospitalizations/Surgeries HX Hospitalizations: No Any Problems With Anesthesia: No You/Your Family Experience Fever (Hyperthermia) With Anes: No Cholinesterase deficiency: No Cardiovascular Hx of Irregular Heartbeat and/or Afib: No Hx Heart Attack: No Hx Congestive Heart Failure: No Hx Rheumatic Fever: No Hx Hypertension: Yes Hx Pacemaker: No Respiratory HX of Shortness of Breath: No Hx Chronic Obstructive Pulmonary Disease (COPD): No Hx Asthma: No Hx Emphysema: No Hx Sleep Apnea: No Hx Respiratory Tract Infection/Cold (presently): No Do You Snore Loudly (louder than talking or can be heard): No Do You Often Feel Tired/ Fatigued/ Sleepy Dring Daytime?: No Has Anyone Observed You Stop Breathing During Sleep?: No Result (for STOP score): Negative Smoking Status: Former smoker Gastrointestinal Hx Ulcer: Yes Neurological Hx Seizures: No Hx Multiple Sclerosis: No Hx Parkinson's Disease: No Hx Head/Neck Injury: No Hx Headaches: No Hx Back Injury/Pain: No Does patient have nerve stimulator: No Blood Disorder Hx Hepatitis: No Hx Anemia: No Reproduction : No Is Patient Lactating: No Musculoskeletal Hx Arthritis: Yes Hx Gout: No Endocrine Hx Diabetes: No Thyroid Disease: No Psycho/Social Hx Anxiety: No Hx Depression: No Hx Dementia: No Miscellaneous Hx Cancer: No Recent Exposure to Contagious Disease: No Allergies aspirin Allergy (Severe, Verified 02/15/25 07:10) Stomach pain cephalexin Allergy (Mild, Verified 02/15/25 07:10) rash sulfamethoxazole (From Bactrim) Allergy (Mild, Verified 02/15/25 07:10) Rash trimethoprim (From Bactrim) Allergy (Mild, Verified 02/15/25 07:10) Rash Discharge Is Pt Admitted From a Long-Term, or a Mcfp: No Who Could Help: FINANCE After D/C, Where Do you Plan to Go: Return Home From the PAT History Number of Risk Factors: 2 Vital Signs Vital Signs Vital Signs: 02/15/25 07:11 02/15/25 07:11 02/15/25 07:32 Temperature 96.8 F L 96.8 F L Temperature Source Temporal Pulse Rate 68 68 Respiratory Rate 18 18 Respiratory Pattern Normal Blood Pressure 158/79 H 158/79 H Blood Pressure Mean 105 Blood Pressure Source Monitor Blood Pressure Position Sitting Blood Pressure Location Right Forearm Pulse Ox 98 98 Oxygen Delivery Method Room Air Room Air Weight Weight: 315 lb 11.231 oz Body Mass Index (BMI) 54.1 Physical Exam Const alert, oriented x3 and no apparent distress Nutritional Appearance: morbidly obese Resp normal respiratory effort GI GI Narrative: Morbidly obese nondistended, soft, mild tenderness to palpation over the epigastrium?otherwise nontender in remaining 4 abdominal quadrants Assessment & Plan Assessment/Plan (1) Encounter for screening colonoscopy: PLAN: Patient is 64-year-old female who presents for open access screening colonoscopy. She largely confirms the content of her preprocedure questionnaire, but note is made of some remote diagnoses of perirectal abscess and hemorrhoids. Patient denies any present issues. Patient confirms completion of bowel prep. Will now proceed to endoscopy suite for planned colonoscopy. She is made aware that if any biopsies are made during the procedure this will be followed with a phone call of those results and its implication for ongoing treatment/surveillance endoscopy. Alexandr Cardoza MD General Surgery Endocrine Surgery Pager: [facility] [address] [place] [address], [facility], [address] [place] [address] Office: [phone] Surgery Risks - Colonoscopy Risks Include but are not Limited To: Risks include but are not limited to: Bleeding, perforation requiring further surgery, inability to complete colonoscopy requiring barium enema.
--- NOTE | 2025-02-15 08:00 | COLBX_PTH ---
PATIENT: ALCIDES STEELE LOC: EN U#:[id number] AGE/SX: 64/F ROOM: RE02/15/[address]: Dr. Alexandr Cardoza MD : 1960 BED: DIS: 02/15/2025 SPEC #: [id number] RECD: 02/15/25 10:10 STATUS: HIRA JOSSUE #: [id number] [place]: 02/15/25 08:[address]: Alexandr Cardoza DEPT: SURGICAL PATHOLOGY RECD BY: Tish Phelps ENTERED: 02/15/25 15:06 SP TYPE: COLON BX OTHR DR: Dr. Arsh Llanos, Tissues: Rectum, NOS Procedures: Surgery Specimen Level IV HEADER OPERATION: Colonoscopy, biopsy PRE-OP DIAGNOSIS: Encounter for screening colonoscopy TISSUE SUBMITTED: A- Rectum biopsy MICROSCOPIC DIAGNOSIS A. Rectum, biopsy: - Hyperplastic polyp. MICROSCOPIC DESCRIPTION Slides are reviewed. GROSS DESCRIPTION A. Received in fixative is one container labeled with the patient's name and designated Rectum biopsy. The specimen consists of one irregular fragment of light zuniga soft tissue that measures 0.5 x 0.5 x 0.2 cm. The specimen is totally submitted in one cassette. 02/15/2025 CPT:[id number]
--- NOTE | 2025-02-15 08:39 | PCM.POST.ANE ---
Anesthesia: Postop Eval I Current Vital Signs Temperature: 98 F Pulse Rate: 60 Blood Pressure: 123/63 Respiratory Rate: 16 Pulse Ox: 97 Oxygen Delivery Method: Room Air Assessment Airway patent: Yes Spontaneous unlabored respirations: Yes Mental status: Awake and Calm nausea: No Vomiting: No Anesthesia Complication: No Fluid Hydration Crystalloid volume administer (ml): 500 Total IV fluid infused: 500 Progress Note Anesthesia document: Postop Eval 1 completed: Yes
--- NOTE | 2025-02-15 08:47 | OP.COLON_ITS ---
Patient Name: Agnieszka Castelan Procedure Date: 02/15/2025 6:51 AM Date of : 1960 Age: 64 Procedure: Colonoscopy Indications: Screening for colorectal malignant neoplasm Providers: Alexandr Cardoza MD Referring MD: Arsh Llanos Medicines: See the Anesthesia note for documentation of the administered medications Patient Profile: Last Colonoscopy: none. The patient's first colonoscopy is today. Complications: No immediate complications. Estimated blood loss: Minimal. Procedure: Pre-Anesthesia Assessment: - The heart rate, respiratory rate, oxygen saturations, blood pressure, adequacy of pulmonary ventilation, and response to care were monitored throughout the procedure. After I obtained informed consent, the scope was passed under direct vision. Throughout the procedure, the patient's blood pressure, pulse, and oxygen saturations were monitored continuously. The pediatric colonoscope was introduced through the anus and advanced to the ileocecal valve. The colonoscopy was performed without difficulty. The patient tolerated the procedure well. The quality of the bowel preparation was adequate to identify polyps. Scope In: 8:13:11 AM Scope Withdrawal Time 0 hours 16 minutes 22 seconds Scope Out: 8:38:12 AM Total Procedure Duration Time 0 hours 25 minutes 1 second Findings: Hemorrhoids were found on perianal exam. A 3 mm polypoid lesion was found in the distal rectum. The lesion was semi-sessile. No bleeding was present. Biopsies were taken with a cold forceps for histology. Estimated blood loss was minimal. The exam was otherwise without abnormality on direct and retroflexion views. Impression: - Hemorrhoids found on perianal exam. - Likely benign polypoid lesion in the distal rectum. Biopsied. - The examination was otherwise normal on direct and retroflexion views. Recommendation: - Discharge patient to home (via wheelchair). - Resume previous diet today. - No aspirin, ibuprofen, naproxen, or other non-steroidal anti-inflammatory drugs for 2 days after biopsy. - Await pathology results. - Repeat colonoscopy date to be determined after pending pathology results are reviewed for surveillance based on pathology results. - Telephone my office for pathology results in 1 week. Procedure Code(s): --- Professional --- 18229, Colonoscopy, flexible; with biopsy, single or multiple Diagnosis Code(s): --- Professional --- Z12.11, Encounter for screening for malignant neoplasm of colon K64.9, Unspecified hemorrhoids D49.0, Neoplasm of unspecified behavior of digestive system CPT copyright 2021 [employer]. All rights reserved. The codes documented in this report are preliminary and upon python engineer review may be revised to meet current compliance requirements. Alexandr Cardoza MD 02/15/2025 8:46:47 AM This report has been signed electronically. Number of Addenda: 0 Note Initiated On: 02/15/2025 6:51 AM
--- NOTE | 2025-02-15 08:47 | OP.CCLET_ITS ---
02/15/2025 Arsh Llanos Re : Colonoscopy procedure for Agnieszka Castelan Dear Dr. Llanos This procedure was performed on Saturday, February 15, 2025. My impressions and recommendations are as follows: Impressions : - Hemorrhoids found on perianal exam. - Likely benign polypoid lesion in the distal rectum. Biopsied. - The examination was otherwise normal on direct and retroflexion views. Recommendations : - Discharge patient to home (via wheelchair). - Resume previous diet today. - No aspirin, ibuprofen, naproxen, or other non-steroidal anti-inflammatory drugs for 2 days after biopsy. - Await pathology results. - Repeat colonoscopy date to be determined after pending pathology results are reviewed for surveillance based on pathology results. - Telephone my office for pathology results in 1 week. My findings are described in the full procedure note, which is enclosed. If I can be of further assistance, please feel free to contact me at Doctor phone number(s): , Work: . Sincerely, Alexandr Cardoza MD 02/15/2025 8:46:47 AM This report has been signed electronically.
--- NOTE | 2025-02-15 08:57 | POSTOPAN2_ITS ---
Anesthesia Postop Eval I Sum Postop Eval Completion status Anesthesia document: Postop Eval 1 completed: Yes Anesthesia Postop Eval I Summary Anesthesia Postop Eval I Summary: Anesthesia Postop Eval I: Assessment Summary Airway patent Yes 02/15/25 08:39 CAN FILLING AND CLOSING MACHINE TENDER.MDOT Spontaneous unlabored Yes 02/15/25 08:39 CAN FILLING AND CLOSING MACHINE TENDER.MDOT respirations Mental status Awake,Calm 02/15/25 08:39 CAN FILLING AND CLOSING MACHINE TENDER.MDOT nausea No 02/15/25 08:39 CAN FILLING AND CLOSING MACHINE TENDER.MDOT Vomiting No 02/15/25 08:39 CAN FILLING AND CLOSING MACHINE TENDER.MDOT Anesthesia Postop Eval I: Fluid Summary Crystalloid volume administer 500 02/15/25 08:39 CAN FILLING AND CLOSING MACHINE TENDER.MDOT (ml) Colloids volume administered ( ml) Blood Product volume administered (ml) Total IV fluid infused 500 02/15/25 08:39 CAN FILLING AND CLOSING MACHINE TENDER.MDOT Anesthesia Postop Eval I: Summary Notes Anesthesia Complication No 02/15/25 08:39 CAN FILLING AND CLOSING MACHINE TENDER.MDOT Anesthesia Complication Comment: Post-operative progress note Anesthesia: Postop Eval II Evaluation Mental status: Awake and Calm Pain Level: 0 nausea: No Vomiting: No Complications Anesthesia Complication: No
--- NOTE | 2025-02-15 08:57 | PCM.POSTANE2 ---
Anesthesia Postop Eval I Sum Postop Eval Completion status Anesthesia document: Postop Eval 1 completed: Yes Anesthesia Postop Eval I Summary Anesthesia Postop Eval I Summary: Anesthesia Postop Eval I: Assessment Summary Airway patent Yes 02/15/25 08:39 BOTANY [email or web address] Spontaneous unlabored Yes 02/15/25 08:39 BOTANY PROFESSOR.MDOT respirations Mental status Awake,Calm 02/15/25 08:39 BOTANY PROFESSOR.MDOT nausea No 02/15/25 08:39 BOTANY PROFESSOR.MDOT Vomiting No 02/15/25 08:39 BOTANY PROFESSOR.MDOT Anesthesia Postop Eval I: Fluid Summary Crystalloid volume administer 500 02/15/25 08:39 BOTANY PROFESSOR.MDOT (ml) Colloids volume administered ( ml) Blood Product volume administered (ml) Total IV fluid infused 500 02/15/25 08:39 BOTANY PROFESSOR.MDOT Anesthesia Postop Eval I: Summary Notes Anesthesia Complication No 02/15/25 08:39 BOTANY PROFESSOR.MDOT Anesthesia Complication Comment: Post-operative progress note Anesthesia: Postop Eval II Evaluation Mental status: Awake and Calm Pain Level: 0 nausea: No Vomiting: No Complications Anesthesia Complication: No
--- NOTE | 2025-02-15 12:43 | POSTOPAN2_ITS ---
Anesthesia Postop Eval I Sum Postop Eval Completion status Anesthesia document: Postop Eval 1 completed: Yes Anesthesia Postop Eval I Summary Anesthesia Postop Eval I Summary: Anesthesia Postop Eval I: Assessment Summary Airway patent Yes 02/15/25 08:39 [employer]IC GARDENING TEACHER.MDOT Spontaneous unlabored Yes 02/15/25 08:39 [employer] GARDEN[employer] TEACHER.MDOT respirations Mental status Awake,Calm 02/15/25 08:57 [employer] GARDENING TEACHER.MDOT nausea No 02/15/25 08:57 [employer] GARDEN[employer] TEACHER.MDOT Vomiting No 02/15/25 08:57 [employer] GARDENING TEACHER.MDOT Anesthesia Postop Eval I: Fluid Summary Crystalloid volume administer 500 02/15/25 08:39 [employer] GARDENING TEACHER.MDOT (ml) Colloids volume administered ( ml) Blood Product volume administered (ml) Total IV fluid infused 500 02/15/25 08:39 [employer]GAN[employer] GARDENING TEACHER.MDOT Anesthesia Postop Eval I: Summary Notes Anesthesia Complication No 02/15/25 08:57 [employer] GARDENING TEACHER.MDOT Anesthesia Complication Comment: Post-operative progress note Anesthesia: Postop Eval II Evaluation Mental status: Awake and Calm Pain Level: 0 nausea: No Vomiting: No Complications Anesthesia Complication: No
--- NOTE | 2025-02-15 12:43 | PCM.POSTANE2 ---
Anesthesia Postop Eval I Sum Postop Eval Completion status Anesthesia document: Postop Eval 1 completed: Yes Anesthesia Postop Eval I Summary Anesthesia Postop Eval I Summary: Anesthesia Postop Eval I: Assessment Summary Airway patent Yes 02/15/25 08:[address] REPOR[address]MDOT Spontaneous unlabored Yes 02/15/25 08:[address] REPORTER.MDOT respirations Mental status Awake,Calm 02/15/25 08:57 COURT REPORTER.MDOT nausea No 02/15/25 08:[address] REPORTER.MDOT Vomiting No 02/15/25 08:[address] REPORTER.MDOT Anesthesia Postop Eval I: Fluid Summary Crystalloid volume administer 500 02/15/25 08:[address] REPORTER.MDOT (ml) Colloids volume administered ( ml) Blood Product volume administered (ml) Total IV fluid infused 500 02/15/25 08:[address] REPORTER.MDOT Anesthesia Postop Eval I: Summary Notes Anesthesia Complication No 02/15/25 08:[address] REPORTER.MDOT Anesthesia Complication Comment: Post-operative progress note Anesthesia: Postop Eval II Evaluation Mental status: Awake and Calm Pain Level: 0 nausea: No Vomiting: No Complications Anesthesia Complication: No
== END 2025-02-15 09:39 | disposition home or self-care (01) ==
LOC: EN 06:50 → AC 06:52
PROVIDERS: PCP Family Medicine; Referring Provider Family Medicine; Visit Provider Surgery
PROC: 0DJD8ZZ Inspection of Lower Intestinal Tract, Via Natural or Artificial Opening Endoscopic (ICD-10-PCS; CPT 45378; principal; 2025-02-15 07:55)
DX: Z12.11 Encounter for screening for malignant neoplasm of colon (principal); Z79.899 Other long term (current) drug therapy; Z87.891 Personal history of nicotine dependence; Z90.710 Acquired absence of both cervix and uterus; I10 Essential (primary) hypertension; K64.4 Residual hemorrhoidal skin tags; D49.0 Neoplasm of unspecified behavior of digestive system
CPT/HCPCS: 45380; 88305